=== PATIENT | male | born 1940 | race Caucasian/White ===

== ENCOUNTER 2017-03-22 18:15 | Emergency (ER) | payer MEDICARE, OTHER ==
[~2017-03-22] VITALS: Ht 177.8 cm; Wt 85.3 kg
[2017-03-22] MEDS ORDERED: METF1000 (18:25)
[2017-03-22] MEDS ORDERED: LISI-552 (18:25)
[2017-03-22] MEDS ORDERED: INSU100I29 (18:25)
[2017-03-22] MEDS ORDERED: GLIM4TAB (18:25)
[2017-03-22] MEDS ORDERED: LEVO150T6 (18:25)
[2017-03-22] MEDS ORDERED: CICL15CR11 (18:25)
[2017-03-22] MEDS ORDERED: OMEP20CA12 (18:25)
[2017-03-22] MEDS ORDERED: NS IV 1000 ML 1,000 ML IV ONE ×2 (18:32→19:07)
--- NOTE | 2017-03-22 18:32 | ED General ---
General Chief Complaint: Dizziness/Syncope Stated Complaint: DIZZINESS/NAUSEA/LOW BP Nursing Triage Note: PATIENT REPORTS DIZZINESS, N/V AND HYPOTENSION Nursing Sepsis Screen: No Definite Risk Source of Information: Patient, Spouse Exam Limitations: No Limitations History of Present Illness Time Seen by Provider: 18:26 Initial Comments Patient presents to ER by private conveyance with his with chief complaint that this afternoon he was out doing yard work pruning [employer] and doing okay however he started feeling lightheaded and weak and nauseated. When he arrived to the ER he vomited 1 without blood in it. He says about 2 hours prior to arrival he was feeling well and talking to a friend on the phone but shortly after that he had to go in and sit down. Since he is feeling so poorly and dizzy he got his blood pressure and a blood sugar. The blood sugar was in the 150s and his blood pressure was 108 over 60s which was low for him. He recalls taking all of his medicines this morning. He drinks on average 2 alcoholic beverages daily with his last intake last night. He denies any coronary history or thyroid disorder. He takes a baby aspirin daily. He is also on mely inhibitors. He denies any sweats or numbness or chest pain or shortness of breath. Allergies and Home Medications Allergies Coded Allergies: codeine (Verified Allergy, Unknown, 03/22/17) epinephrine (Verified Allergy, Unknown, 03/22/17) Home Medications Ciclopirox Olamine 15 Gm Cream..g., #90 (Reported) Glimepiride 4 Mg Tablet, #180 (Reported) Insulin Detemir 100 Unit/1 Ml Insuln.pen, #6 (Reported) Levothyroxine Sodium 150 Mcg Tablet, #90 (Reported) Lisinopril 20 Mg Tablet, #90 (Reported) Metformin HCl 1,000 Mg Tablet, #180 (Reported) Omeprazole 20 Mg Capsule.dr, #90 (Reported) Constitutional: see HPI, No chills, No diaphoresis, dizziness, No fever, malaise EENTM: No ear pain, No eye pain, No nose congestion Respiratory: No cough, No short of breath Cardiovascular: No chest pain, No edema, No Hx of Intervention, No syncope, No vascular heart diseas Gastrointestinal: No abdominal pain, No constipation, No diarrhea, nausea, vomiting Genitourinary: No dysuria, No frequency Musculoskeletal: No back pain, No joint pain Skin: No pruritus, No rash Psychiatric/Neurological: Denies Headache Past Bfdibfz-Gxtojg-Ekwagu Hx Patient Social History Alcohol Use: Regular Use Recreational Drug Use: No Smoking Status: Never a Smoker Recent Foreign Travel: No Contact w/Someone Who Travel: No Recent Infectious Disease Expo: No Recent Hopitalizations: No Seasonal Allergies Seasonal Allergies: No Surgeries Surgeries: Adenoidectomy, Gallbladder, Orthopedic, Thyroidectomy, Tonsillectomy Cardiovascular Cardiac Disorders: Hypertension Gastrointestinal Gastrointestinal Disorders: Gastroesophageal Reflux Endocrine Endocrine Disorders: Diabetes, Insulin dep, Hypothyroidsim Physical Exam Vital Signs Vital Sign - Last 12Hours 03/22/17 18:22 Temp 98.2 Pulse 61 Resp 18 B/P (MAP) 188/80 Pulse Ox 99 Capillary Refill : Less Than 3 Seconds General Appearance: WD/WN, Mild Distress Eyes: Bilateral Eye EOMI, Bilateral Eye Normal Inspection, Bilateral Eye PERRL HEENT: PERRL/EOMI, TMs Normal, Normal ENT Inspection, Pharynx Normal, Other ( pharynx mucosa is dry) Neck: Normal Inspection, Non Tender Respiratory: Lungs Clear, Normal Breath Sounds Cardiovascular: Regular Rate, Rhythm, No Edema, No JVD Gastrointestinal: Normal Bowel Sounds, Non Tender, Soft Extremity: Normal Capillary Refill, No Pedal Edema Neurologic/Psychiatric: Alert, Oriented x3 Skin: Normal Color, Warm/Dry Lymphatic: No Adenopathy Progress/Results/Core Measures Results/Orders Lab Results Laboratory Tests Test 03/22/17 18:30 Range/Units White Blood Count 8.1 4.3-11.0 10^3/uL Red Blood Count 4.13 L 4.35-5.85 10^6/uL Hemoglobin 12.3 L 13.3-17.7 G/DL Hematocrit 36 L 40-54 % Mean Corpuscular Volume 86 80-99 FL Mean Corpuscular Hemoglobin 30 25-34 PG Mean Corpuscular Hemoglobin Concent 35 32-36 G/DL Red Cell Distribution Width 12.1 10.0-14.5 % Platelet Count 207 130-400 10^3/uL Mean Platelet Volume 10.4 7.4-10.4 FL Neutrophils (%) (Auto) 48 42-75 % Lymphocytes (%) (Auto) 37 12-44 % Monocytes (%) (Auto) 9 0-12 % Eosinophils (%) (Auto) 5 0-10 % Basophils (%) (Auto) 1 0-10 % Neutrophils # (Auto) 3.9 1.8-7.8 X 10^3 Lymphocytes # (Auto) 3.0 1.0-4.0 X 10^3 Monocytes # (Auto) 0.8 0.0-1.0 X 10^3 Eosinophils # (Auto) 0.4 H 0.0-0.3 10^3/uL Basophils # (Auto) 0.1 0.0-0.1 10^3/uL Sodium Level 135 135-145 MMOL/L Potassium Level 4.7 3.6-5.0 MMOL/L Chloride Level 103 98-107 MMOL/L Carbon Dioxide Level 22 21-32 MMOL/L Anion Gap 10 5-14 MMOL/L Blood Urea Nitrogen 28 H 7-18 MG/DL Creatinine 1.74 H 0.60-1.30 MG/DL Estimat Glomerular Filtration Rate 38 BUN/Creatinine Ratio 16 Glucose Level 142 H 70-105 MG/DL Calcium Level 9.1 8.5-10.1 MG/DL Magnesium Level 1.8 1.8-2.4 MG/DL Total Bilirubin 0.6 0.1-1.0 MG/DL Aspartate Amino Transf (AST/SGOT) 16 5-34 U/L Alanine Aminotransferase (ALT/SGPT) 13 0-55 U/L Alkaline Phosphatase 79 40-136 U/L Troponin I < 0.30 <0.30 NG/ML Total Protein 7.1 6.4-8.2 GM/DL Albumin 4.0 3.2-4.5 GM/DL My Orders Orders - CARLO MENA Cbc With Automated Diff (03/22/17 18:32) Comprehensive Metabolic Panel (03/22/17 18:32) Magnesium (03/22/17 18:32) Troponin I (03/22/17 18:32) Chest 1 View, Ap/Pa Only (03/22/17 18:32) Ekg Tracing (03/22/17 18:32) Monitor-Rhythm Ecg Trace Only (03/22/17 18:32) Saline Lock/Iv-Start (03/22/17 18:32) Ns Iv 1000 Ml (Sodium Chloride 0.9%) (03/22/17 18:32) Ondansetron Injection (Zofran Injectio (03/22/17 18:45) Ns Iv 1000 Ml (Sodium Chloride 0.9%) (03/22/17 19:07) Ondansetron Injection (Zofran Injectio (03/22/17 19:15) Medications Given in ED Current Medications Medications Dose Ordered Sig/Kusum Route Start Time Stop Time Status Last Admin Dose Admin Ondansetron HCl 4 mg ONCE ONCE IVP 03/22/17 18:45 03/22/17 18:46 DC 03/22/17 18:39 4 MG Ondansetron HCl 4 mg ONCE ONCE IVP 03/22/17 19:15 03/22/17 19:16 DC 03/22/17 19:18 4 MG Sodium Chloride 1,000 ml @ 0 mls/hr Q0M ONCE IV 03/22/17 18:32 03/22/17 18:35 DC 03/22/17 18:39 0 MLS/HR Sodium Chloride 1,000 ml @ 0 mls/hr Q0M ONCE IV 03/22/17 19:07 03/22/17 19:09 DC 03/22/17 19:18 0 MLS/HR Vital Signs/I&O Vital Sign - Last 12Hours 03/22/17 18:22 Temp 98.2 Pulse 61 Resp 18 B/P (MAP) 188/80 Pulse Ox 99 Blood Pressure Mean: 116 Progress Note #1: Time: 18:42 Progress Note It appears to be classic heat exhaustion however we will do a little workup given his age just to make sure there is not a cardiac cause or that it has triggered a cardiac event. Progress Note #2: Time: 19:04 Progress Note First set orthostatic vitals were negative for sympathetic dysfunction. ECG Initial ECG Impression Date: Mar 22, 2017 Initial ECG Impression Time: 18:39 Initial ECG Rate: 56 Initial ECG Rhythm: Normal Sinus Initial ECG Intervals: QRS (136 ms) Initial ECG Impression: Normal, Nonspecific Changes Initial ECG Comparisson: No Previous ECG Available Comment No ST T wave aberrations. Diagnostic Imaging Diagonstic Imaging: Xray Plain Films/CT/US/NM/MRI: chest Comments No previous imaging to compare to. Otherwise no acute cardiopulm processes noted. Potential cardiomegaly however this is a difficult study to make that call. [facility] [place], [place] NAME: ROGELIO SALCIDO [facility] REC#: [id number] PT STATUS: REG ER : 1940 PHYSICIAN: CARLO MENA MD ADMIT DATE: 03/22/17/ER Draft Date of Exam:03/22/17 CHEST 1 VIEW, AP/PA ONLY EXAM: CHEST 1 VIEW, AP/PA ONLY INDICATION: Dizziness. Hypotension. COMPARISON: None. FINDINGS: Normal heart size and pulmonary vascularity. No focal pulmonary opacity, pleural effusion or pneumothorax. Left costophrenic angle is not included on the exam. No acute osseous findings. IMPRESSION: No acute cardiopulmonary findings. The left costophrenic angle is not included on the exam. Dictated on workstation # [id number] Dict: 03/22/171901 Trans: 03/22/171907 [id number] Interpreted by: JULIO GARZA MD Electronically signed by: Reviewed: Reviewed by Me Departure Impression Impression: Primary Impression: Dehydration Additional Impressions: Dizziness Heat exhaustion Qualified Codes: T67.5XXA - Heat exhaustion, unspecified, initial encounter Disposition: HOME, SELF-CARE Condition: Improved Departure-Patient Inst. Decision time for Depature: 19:39 Referrals: ROGELIO MAYES MD (PCP) Primary Care Physician Patient Instructions: Heat Exhaustion and Heat Stroke (DC) Add. Discharge Instructions: The next day or two you should probably take it easy and stay out of the heat. Please do your yardwork early in the morning when it still cool. It is reasonable to drink a sports drink especially one without sugar every time you goes out in the heat or is sweating. You can dilute it 50/50 with water and this will help if the flavor is too strong. Otherwise follow-up tomorrow at your preplanned appointment with Dr. Mayes. If you're having any new or worrisome symptoms you should return to the ER. I have sent some Zofran to the pharmacy. Take it every 6 hours if you have nausea or vomiting. All discharge instructions reviewed with patient and/or family. Voiced understanding. Scripts Ondansetron (Zofran Odt) 4 Mg Tab.rapdis 4 MG PO Q6H Y for NAUSEA/VOMITING-1ST LINE, #20 TAB 0 Refills Prov: CARLO MENA 03/22/17 Copy Copies To 1: ROGELIO MAYES MD, TITUS J Mar 22, 2017 18:31
[2017-03-22 18:42] LABS: BASOPHILS # (AUTO) 0.1 10^3/uL (0.0-0.1); BASOPHILS % (AUTO) 1 % (0-10); EOSINOPHILS # (AUTO) 0.4 10^3/uL (0.0-0.3); EOSINOPHILS % (AUTO) 5 % (0-10); LYMPHOCYTES % (AUTO) 37 % (12-44); MEAN CORPUSCULAR HEMOGLOBIN 30 PG (25-34); MEAN CORPUSCULAR HGB CONC 35 G/DL (32-36); MEAN CORPUSCULAR VOLUME 86 FL (80-99); MEAN PLATELET VOLUME 10.4 FL (7.4-10.4); MONOCYTES # (AUTO) 0.8 X 10^3 (0.0-1.0); MONOCYTES % (AUTO) 9 % (0-12); NEUTROPHILS # (AUTO) 3.9 X 10^3 (1.8-7.8); NEUTROPHILS % (AUTO) 48 % (42-75); PLATELET COUNT 207 10^3/uL (130-400); RED BLOOD COUNT 4.13 10^6/uL (4.35-5.85); RED CELL DISTRIBUTION WIDTH 12.1 % (10.0-14.5); WHITE BLOOD COUNT 8.1 10^3/uL (4.3-11.0)
[2017-03-22] MEDS ORDERED: ONDANSETRON 4 MG/2 ML (SDV) Z0FRAN IVP ONE ×2 (18:45→19:15)
[2017-03-22 18:57] LABS: ALANINE AMINOTRANSFERASE 13 U/L (0-55); ANION GAP 10 MMOL/L (5-14); ASPARTATE AMINO TRANSFERASE 16 U/L (5-34); BILIRUBIN,TOTAL 0.6 MG/DL (0.1-1.0); BLOOD UREA NITROGEN 28 MG/DL (7-18); BUN/CREATININE RATIO 16; CALCIUM 9.1 MG/DL (8.5-10.1); CARBON DIOXIDE 22 MMOL/L (21-32); CHLORIDE 103 MMOL/L (98-107); CREATININE SERUM 1.74 MG/DL (0.60-1.30); GFR ESTIMATED 38; GLUCOSE 142 MG/DL (70-105); MAGNESIUM 1.8 MG/DL (1.8-2.4); POTASSIUM 4.7 MMOL/L (3.6-5.0); SODIUM 135 MMOL/L (135-145); TOTAL PROTEIN 7.1 GM/DL (6.4-8.2)
[2017-03-22 19:03] LABS: TROPONIN I < 0.30 NG/ML (<0.30)
--- NOTE | 2017-03-22 19:09 | Diagnostic Imaging Report ---
EXAM: CHEST 1 VIEW, AP/PA ONLY INDICATION: Dizziness. Hypotension. COMPARISON: None. FINDINGS: Normal heart size and pulmonary vascularity. No focal pulmonary opacity, pleural effusion or pneumothorax. Left costophrenic angle is not included on the exam. No acute osseous findings. IMPRESSION: No acute cardiopulmonary findings. The left costophrenic angle is not included on the exam. Dictated by: Dictated on workstation # [id number]
[2017-03-22] MEDS ORDERED: ONDA4TAB8 PO (19:49)
[2017-03-22 19:57] VITALS: BP 141/72
== END 2017-03-22 19:57 | disposition home or self-care (01) ==
LOC: EDUNIT# 18:15 → ER 18:16
DX: T67.5XXA Heat exhaustion, unspecified, initial encounter (principal); I10 Essential (primary) hypertension; K21.9 Gastro-esophageal reflux disease without esophagitis; E11.9 Type 2 diabetes mellitus without complications; E03.9 Hypothyroidism, unspecified; Z79.4 Long term (current) use of insulin; Z79.84 Long term (current) use of oral hypoglycemic drugs; Z90.89 Acquired absence of other organs; Z90.49 Acquired absence of other specified parts of digestive tract; X30.XXXA Exposure to excessive natural heat, initial encounter
CPT/HCPCS: 36415; 71010; 80053; 83735; 84484; 85025; 93005; 96361; 96374; 96376

== ENCOUNTER 2018-10-09 15:14 | Inpatient (IN) | payer MEDICARE, OTHER ==
[~2018-10-09] VITALS: Ht 175.3 cm; Wt 86.0 kg
[~2018-10-09 15:14] MED LIST: CICL15CR11; GLIM4TAB PO; INSU100I29 SC; LEVO150T6 PO; LISI-552 PO; METF-399 PO; OMEP20CA12 PO; ONDA4TAB8 PO
[2018-10-09 15:57] LABS: BASOPHILS % (AUTO) 0 % (0-10); EOSINOPHILS % (AUTO) 0 % (0-10); HEMATOCRIT 37 % (40-54); HEMOGLOBIN 12.7 G/DL (13.3-17.7); LYMPHOCYTES % (AUTO) 7 % (12-44); MEAN CORPUSCULAR HEMOGLOBIN 30 PG (25-34); MEAN CORPUSCULAR HGB CONC 35 G/DL (32-36); MEAN CORPUSCULAR VOLUME 86 FL (80-99); MEAN PLATELET VOLUME 10.7 FL (7.4-10.4); MONOCYTES # (AUTO) 1.2 X 10^3 (0.0-1.0); MONOCYTES % (AUTO) 8 % (0-12); NEUTROPHILS # (AUTO) 12.8 X 10^3 (1.8-7.8); NEUTROPHILS % (AUTO) 85 % (42-75); PLATELET COUNT 190 10^3/uL (130-400); RED CELL DISTRIBUTION WIDTH 12.5 % (10.0-14.5)
[2018-10-09] MEDS ORDERED: ACETAMINOPHEN 500 MG TAB (TYLENOL) PO PRN (16:00)
[2018-10-09 16:15] LABS: ALBUMIN 4.1 GM/DL (3.2-4.5); BILIRUBIN,TOTAL 1.2 MG/DL (0.1-1.0); CALCIUM 9.4 MG/DL (8.5-10.1); CREATININE SERUM 1.84 MG/DL (0.60-1.30); POTASSIUM 4.9 MMOL/L (3.6-5.0); TOTAL PROTEIN 7.1 GM/DL (6.4-8.2)
[2018-10-09 16:18] LABS: INR 1.1 (0.8-1.4); PROTHROMBIN TIME PATIENT 13.9 SEC (12.2-14.7)
--- NOTE | 2018-10-09 16:22 | Diagnostic Imaging Report ---
INDICATION: Fever and tachycardia. EXAM: Frontal chest obtained at 3:56 hours p.m. COMPARISON: 03/22/2017. FINDINGS: Heart and mediastinal silhouette are normal in appearance. The lungs appear clear. There is no pneumothorax or pleural fluid. IMPRESSION: No acute process in the chest. Dictated by: Dictated on workstation # [id number]
--- NOTE | 2018-10-09 16:27 | ED General ---
General Chief Complaint: Fever-Adult/Adol Stated Complaint: FEVER/TACHYCARDIC Source of Information: Patient Exam Limitations: No Limitations History of Present Illness Date Seen by Provider: Oct 09, 2018 Time Seen by Provider: 16:08 Initial Comments Here with report of not feeling well since yesterday. Reports fever, cough, chills and overall not feeling well. Seen by his primary care provider today who had concerns about influenza. Patient arrives tachycardic. Normally very healthy. Sent here for further evaluation related to concerns of pneumonia or influenza. Timing/Duration: 1-2 Days Severity: Moderate Associated Systoms: Cough, Fever/Chills; No Nausea/Vomiting; Shortness of Air, Weakness Allergies and Home Medications Allergies Coded Allergies: codeine (Verified Allergy, Unknown, 03/22/17) epinephrine (Verified Allergy, Unknown, 03/22/17) Home Medications Ondansetron 4 Mg Tab.rapdis, 4 MG PO Q6H PRN for NAUSEA/VOMITING-1ST LINE Prescribed by: CARLO MENA on 03/22/171948 Patient Home Medication List Home Medication List Reviewed: Yes Review of Systems Review of Systems Constitutional: see HPI, chills, fever, malaise, weakness EENTM: nose congestion; No throat pain Respiratory: cough, short of breath Cardiovascular: see HPI; No chest pain Gastrointestinal: No abdominal pain; loss of appetite; No nausea, No vomiting Genitourinary: no symptoms reported Musculoskeletal: no symptoms reported Skin: no symptoms reported Psychiatric/Neurological: No Symptoms Reported All Other Systems Reviewed Negative Unless Noted: Yes Past Dqhgiij-Ofmclu-Tcimny Hx Past Med/Social Hx: Reviewed Nursing Past Med/Soc Hx Patient Social History Alcohol Beverage of Choice: Wine Recent Foreign Travel: No Contact w/Someone Who Travel: No Recent Hopitalizations: No Seasonal Allergies Seasonal Allergies: No Past Medical History Surgeries: Yes Adenoidectomy, Gallbladder, Orthopedic, Thyroidectomy, Tonsillectomy Respiratory: No Cardiac: Yes Hypertension Neurological: No Genitourinary: No Gastrointestinal: Yes Gastroesophageal Reflux Musculoskeletal: No Endocrine: Yes Diabetes, Insulin dep, Hypothyroidsim HEENT: No Cancer: No Psychosocial: No Integumentary: Yes Blood Disorders: No Family Medical History Reviewed Nursing Family Hx Physical Exam-Suspected Sepsis Physical Exam Vital Signs Vital Signs - First Documented 10/09/18 15:15 Temp 102.2 Pulse 113 Resp 28 B/P (MAP) 186/85 (118) O2 Delivery Room Air Capillary Refill : Height, Weight, BMI Height: 5'10.00" Weight: 188lbs. oz. 85.888581fp; BMI Method:Stated General Appearance: WD/WN, Mild Distress HEENT: PERRL/EOMI, Pharyngeal Erythema Neck: Non Tender, Supple Respiratory: No Accessory Muscle Use, Crackles (right basilar) Cardiovascular: No Murmur, Tachycardia Gastrointestinal: Non Tender, Soft Back: Normal Inspection, No CVA Tenderness, No Vertebral Tenderness Extremity: Normal Range of Motion, Non Tender Neurologic/Psychiatric: Alert, Oriented x3 Skin: normal color, warm/dry Focused Exam Lactate Level 10/09/18 15:45: Lactic Acid Level 1.58 Lactic Acid Level Laboratory Tests Test 10/09/18 15:45 Lactic Acid Level 1.58 MMOL/L (0.50-2.00) Progress/Results/Core Measures Suspected Sepsis SIRS Temperature: Pulse: Respiratory Rate: Laboratory Tests 10/09/18 15:45: White Blood Count 15.0H Blood Pressure / Mean: 10/09/18 15:45: Lactic Acid Level 1.58 Laboratory Tests 10/09/18 15:45: Creatinine 1.84H, INR Comment 1.1, Platelet Count 190, Total Bilirubin 1.2H Results/Orders Lab Results Laboratory Tests Test 10/09/18 15:45 10/09/18 16:20 Range/Units White Blood Count 15.0 H 4.3-11.0 10^3/uL Red Blood Count 4.27 L 4.35-5.85 10^6/uL Hemoglobin 12.7 L 13.3-17.7 G/DL Hematocrit 37 L 40-54 % Mean Corpuscular Volume 86 80-99 FL Mean Corpuscular Hemoglobin 30 25-34 PG Mean Corpuscular Hemoglobin Concent 35 32-36 G/DL Red Cell Distribution Width 12.5 10.0-14.5 % Platelet Count 190 130-400 10^3/uL Mean Platelet Volume 10.7 H 7.4-10.4 FL Neutrophils (%) (Auto) 85 H 42-75 % Lymphocytes (%) (Auto) 7 L 12-44 % Monocytes (%) (Auto) 8 0-12 % Eosinophils (%) (Auto) 0 0-10 % Basophils (%) (Auto) 0 0-10 % Neutrophils # (Auto) 12.8 H 1.8-7.8 X 10^3 Lymphocytes # (Auto) 1.0 1.0-4.0 X 10^3 Monocytes # (Auto) 1.2 H 0.0-1.0 X 10^3 Eosinophils # (Auto) 0.0 0.0-0.3 10^3/uL Basophils # (Auto) 0.0 0.0-0.1 10^3/uL Neutrophils % (Manual) 88 % Lymphocytes % (Manual) 5 % Monocytes % (Manual) 7 % Blood Morphology Comment NORMAL Prothrombin Time 13.9 12.2-14.7 SEC INR Comment 1.1 0.8-1.4 Activated Partial Thromboplast Time 29 24-35 SEC Sodium Level 134 L 135-145 MMOL/L Potassium Level 4.9 3.6-5.0 MMOL/L Chloride Level 100 98-107 MMOL/L Carbon Dioxide Level 21 21-32 MMOL/L Anion Gap 13 5-14 MMOL/L Blood Urea Nitrogen 31 H 7-18 MG/DL Creatinine 1.84 H 0.60-1.30 MG/DL Estimat Glomerular Filtration Rate 36 BUN/Creatinine Ratio 17 Glucose Level 428 *H 70-105 MG/DL Lactic Acid Level 1.58 0.50-2.00 MMOL/L Calcium Level 9.4 8.5-10.1 MG/DL Corrected Calcium 9.3 8.5-10.1 MG/DL Total Bilirubin 1.2 H 0.1-1.0 MG/DL Aspartate Amino Transf (AST/SGOT) 13 5-34 U/L Alanine Aminotransferase (ALT/SGPT) 11 0-55 U/L Alkaline Phosphatase 98 40-136 U/L Total Protein 7.1 6.4-8.2 GM/DL Albumin 4.1 3.2-4.5 GM/DL Urine Color YELLOW Urine Clarity CLEAR Urine pH 5 5-9 Urine Specific Clarinda 1.015 L 1.016-1.022 Urine Protein 1+ H NEGATIVE Urine Glucose (UA) 4+ H NEGATIVE Urine Ketones 3+ H NEGATIVE Urine Nitrite NEGATIVE NEGATIVE Urine Bilirubin NEGATIVE NEGATIVE Urine Urobilinogen NORMAL NORMAL MG/DL Urine Leukocyte Esterase NEGATIVE NEGATIVE Urine RBC (Auto) 1+ H NEGATIVE Urine RBC NONE /HPF Urine WBC NONE /HPF Urine Squamous Epithelial Cells RARE /HPF Urine Crystals NONE /LPF Urine Bacteria NEGATIVE /HPF Urine Casts NONE /LPF Urine Mucus NEGATIVE /LPF Urine Culture Indicated NO Micro Results Microbiology 10/09/18 Influenza Types A,B Antigen (JOSE M) - Final, Complete My Orders Orders - SOFI CORADO MD Cbc With Automated Diff (10/09/18 15:48) Comprehensive Metabolic Panel (10/09/18 15:48) Blood Culture (10/09/18 15:48) Sputum Culture (10/09/18 15:48) Urinalysis (10/09/18 15:48) Urine Culture (10/09/18 15:48) Protime With Inr (10/09/18 15:48) Partial Thromboplastin Time (10/09/18 15:48) Chest 1 View, Ap/Pa Only (10/09/18 15:48) Acetaminophen Tablet (Tylenol Tablet) (10/09/18 16:00) Saline Lock/Iv-Start (10/09/18 15:48) Saline Lock/Iv-Start (10/09/18 15:48) Vital Signs Adult Sepsis Patie Q15M (10/09/18 15:48) O2 (10/09/18 15:48) Remove Rings In Anticipation O (10/09/18 15:48) Lactic Acid Analyzer (10/09/18 15:48) Influenza A And B Antigens (10/09/18 15:48) Manual Differential (10/09/18 15:45) Saline Lock/Iv-Start (10/09/18 16:29) Ns Iv 1000 Ml (Sodium Chloride 0.9%) (10/09/18 16:29) Ekg Tracing (10/09/18 16:49) Ceftriaxone For Iv Use (Rocephin For I (10/09/18 17:45) Medications Given in ED Current Medications Medications Dose Ordered Sig/Kusum Route Start Time Stop Time Status Last Admin Dose Admin Acetaminophen 1,000 mg ONCE PRN PO 10/09/18 16:00 10/09/18 16:02 DC 10/09/18 16:01 1,000 MG Sodium Chloride 1,000 ml @ 0 mls/hr Q0M ONCE IV 10/09/18 16:29 10/09/18 16:30 DC 10/09/18 16:45 1,000 MLS/HR Vital Signs/I&O 2/4/19 15:15 Temp 102.2 Pulse 113 Resp 28 B/P (MAP) 186/85 (118) O2 Delivery Room Air Capillary Refill : Progress Note : Progress Note Seen and evaluated. IV, labs, chest x-ray, EKG, blood cultures and lactic acid ordered. Normal saline 1 L bolus. Tylenol 1 g by mouth ordered. Monitor patient. 1716: I did discuss the case with Dr. LINARES. Patient has persistent tachycardia. Flu negative. Chest x-ray reported as clear but I am concerned about right lower lobe pneumonia. Patient felt a little better but still overall not well. Patient to be admitted, inpatient status. Patient and family agree with plan. Influenza screen negative. We will go ahead and treat for possible pneumonia. Rocephin 1 g IV ordered. ECG Initial ECG Impression Date: Oct 09, 2018 Initial ECG Impression Time: 16:32 Initial ECG Rate: 110 Initial ECG Rhythm: S.Tach Comment Sinus tachycardia with normal axis. No evidence of ST elevation [place]. Nonspecific intraventricular conduction delay. Similar to previous of 03/22/17 although rate is quite increased. Interpreted by me. Diagnostic Imaging Diagonstic Imaging: Xray Plain Films/CT/US/NM/MRI: chest Comments NAME: ROGELIO SALCIDO [facility] REC#: [id number] PT STATUS: REG ER : 1940 PHYSICIAN: SOFI CORADO MD ADMIT DATE: 10/09/18/ER Signed Date of Exam: 10/09/18 CHEST 1 VIEW, AP/PA ONLY INDICATION: Fever and tachycardia. EXAM: Frontal chest obtained at 3:56 hours p.m. COMPARISON: 03/22/2017. FINDINGS: Heart and mediastinal silhouette are normal in appearance. The lungs appear clear. There is no pneumothorax or pleural fluid. IMPRESSION: No acute process in the chest. Dictated by: Dictated on workstation # [id number] Dict: 10/09/18 1606 Trans: 10/09/18 170 Interpreted by: DI FERNANDEZ MD Electronically signed by: DI FERNANDEZ MD 10/09/18 1700 Departure Communication (Admissions) Time/Spoke to Admitting Phy: 17:16 Impression Primary Impression: Fever Qualified Codes: R50.9 - Fever, unspecified Additional Impressions: Tachycardia Hyperglycemia Right lower lobe pneumonia Qualified Codes: J18.1 - Lobar pneumonia, unspecified organism Disposition: ADMITTED INPATIENT Condition: Stable Admissions Decision to Admit Reason: Admit from ER (General) Decision to Admit/Date: Oct 09, 2018 Time/Decision to Admit Time: 17:16 Departure-Patient Inst. Referrals: ROGELIO MAYES MD (PCP/Family) Primary Care Physician SOFI CORADO MD Oct 09, 2018 16:27
[2018-10-09] MEDS ORDERED: NS IV 1000 ML 1,000 ML IV ONE (16:29)
[2018-10-09 16:33] LABS: LYMPHOCYTES % (MANUAL) 5 %; MONOCYTES % (MANUAL) 7 %; NEUTROPHILS % (MANUAL) 88 %; RBC MORPH NORMAL
[2018-10-09 16:37] LABS: BILIRUBIN,URINE NEGATIVE (NEGATIVE); CLARITY,URINE CLEAR; COLOR,URINE YELLOW; GLUCOSE, URINE (UA) 4+ (NEGATIVE); KETONES,URINE 3+ (NEGATIVE); LEUKOCYTE ESTERASE ,URINE NEGATIVE (NEGATIVE); NITRITE,URINE NEGATIVE (NEGATIVE); PH,URINE 5 (5-9); PROTEIN,URINE 1+ (NEGATIVE); UROBILINOGEN,URINE NORMAL (NORMAL)
[2018-10-09 16:44] LABS: BACTERIA,URINE NEGATIVE /HPF; SQUAMOUS EPITHELIAL CELL,UR RARE /HPF
[2018-10-09] MEDS ORDERED: cefTRIAXone FOR IV USE 1,000 MG in WATER (STERILE) FOR INJECTION 50 ML IV ONE (17:45)
[2018-10-09] MEDS ORDERED: cefTRIAXone 1,000 MG/2.86 ml vial (IM ONLY) ONE (17:55)
--- NOTE | 2018-10-09 18:08 | NUR ---
TEMP 99.2
--- NOTE | 2018-10-09 19:10 | NUR ---
Rogelio Salcido admitted to room 412-1, with an admitting diagnosis of RLL pna , on 10/09/18 from ED via wheelchair, accompanied by staff et .ROGELIO SALCIDO introduced to surroundings, call light, bed controls, phone, TV, temperature control, lights, meal times, smoking policy, visitor policy, side rail policy, bathrooms and showers. Patient Rights given to patient in the handbook.ROGELIO SALCIDO verbalizes understanding that [facility] is not responsible for the loss or damage to any personal effects or valuables that are kept in the patients possession during their hospitalization. The Patient Care Plans were discussed with the pt et . ROGELIO SALCIDO verbalizes understanding of Interdisciplinary Patient Education. Patient and/or family were informed about the Rapid Response Team and its purpose.
[2018-10-09 20:00] VITALS: BP 130/60
[2018-10-09] MEDS ORDERED: ACETAMINOPHEN 325 MG TABLET PO PRN (20:00)
[2018-10-09] MEDS ORDERED: CATHETER FLUSH 10 ML SYR IV PRN (20:00)
[2018-10-09] MEDS ORDERED: ONDANSETRON 4 MG/2 ML (SDV) Z0FRAN IV PRN (20:00)
[2018-10-09] MEDS ORDERED: AZITHROMYCIN 500 MG/NS 250 ML IVPB IV NR ×2 (20:00)
[2018-10-09 20:39] VITALS: BP 120/88
[2018-10-09] MEDS: AZITHROMYCIN 250 MG TAB (ZITHROMAX) PO SCH (20:41)
[2018-10-09] MEDS: NS IV 1000 ML 1,000 ML IV SCH (20:41)
[2018-10-09] MEDS ORDERED: RT-ALBUTEROL/IPRATROPIUM 3 ML (DUONEB) VIAL INH PRN (20:45)
[2018-10-09] MEDS ORDERED: RT-ALBUTEROL/IPRATROPIUM 3 ML (DUONEB) VIAL ONE (20:46)
[2018-10-09] MEDS ORDERED: RT-ALBUTEROL/IPRATROPIUM 3 ML (DUONEB) VIAL INH SCH (22:00)
[2018-10-10] VITALS (7 sets, daily range): BP systolic 110–160; BP diastolic 60–78
[2018-10-10 06:18] LABS: BASOPHILS % (AUTO) 0 % (0-10); EOSINOPHILS % (AUTO) 0 % (0-10); HEMATOCRIT 32 % (40-54); HEMOGLOBIN 11.3 G/DL (13.3-17.7); LYMPHOCYTES # (AUTO) 1.4 X 10^3 (1.0-4.0); LYMPHOCYTES % (AUTO) 12 % (12-44); MEAN CORPUSCULAR HEMOGLOBIN 30 PG (25-34); MEAN CORPUSCULAR HGB CONC 35 G/DL (32-36); MEAN CORPUSCULAR VOLUME 86 FL (80-99); MEAN PLATELET VOLUME 10.7 FL (7.4-10.4); MONOCYTES # (AUTO) 1.1 X 10^3 (0.0-1.0); MONOCYTES % (AUTO) 9 % (0-12); NEUTROPHILS # (AUTO) 9.2 X 10^3 (1.8-7.8); NEUTROPHILS % (AUTO) 79 % (42-75); PLATELET COUNT 190 10^3/uL (130-400); RED CELL DISTRIBUTION WIDTH 12.6 % (10.0-14.5); WHITE BLOOD COUNT 11.8 10^3/uL (4.3-11.0)
[2018-10-10 06:34] LABS: CALCIUM 8.5 MG/DL (8.5-10.1); CREATININE SERUM 1.51 MG/DL (0.60-1.30); POTASSIUM 4.3 MMOL/L (3.6-5.0)
[2018-10-10] MEDS: inSUlin ASPART (NovoLOG) 1 UNIT/0.01 ML (CHARGE PER UNIT) SC SCH ×4 (06:39→21:10)
[2018-10-10] MEDS: NS IV 1000 ML 1,000 ML IV SCH ×3 (06:39→19:30)
[2018-10-10] MEDS ORDERED: cefTRIAXone 1 GM/NS 50 ML IVPB IV SCH ×2 (09:00)
[2018-10-10] MEDS ORDERED: SAW160CA3 PO (12:00)
[2018-10-10] MEDS ORDERED: ASPI-983 PO (12:00)
[2018-10-10] MEDS ORDERED: FOLI0.8T PO (12:00)
--- NOTE | 2018-10-10 12:01 | NUR ---
WENT OVER THE EXT MED HX WITH THE PATIENT AND HE VERIFIED HOW HE TAKES EACH. HE ALSO TAKES THE FOLLOWING OTC: ASPIRIN 81MG HS FOLIC ACID Tue SAW LOLY Tue
--- NOTE | 2018-10-10 12:52 | History & Physical-Hospitalist ---
History of Present Illness HPI/Chief Complaint The patient is an 78-year-old white male. He presented to the emergency room last night with complaints of fever, malaise, harsh cough. He was found to have a temperature of 104. His white blood count was 15,000. He has diabetic and his blood sugar at presentation was 428. Lactic acid was normal at 1.58 his pulse was 113. Blood pressure was initially elevated and is now normal. His SaO2 has been and remains 93+ on room air. Chest x-ray suggested the possibility of an infiltrate in the right paracardial area. In reviewing a previous chest x-ray this area of opacity was present and perhaps more dense on the previous film than this. He reports that this symptom complex had began on Tuesday of last week and had progressed throughout the week. Date Seen 10/10/18 Time Seen by a Provider: 12:47 Attending Physician Sam Linares MD PCP Fidel Otero MD Referring Physician Date of Admission Oct 09, 2018 at 17:55 Home Medications & Allergies Home Medications Reviewed patient Home Medication Reconciliation performed by pharmacy medication reconciliations central supply technician supervisor and/or nursing. Patients Allergies have been reviewed. Allergies Allergies Coded Allergies codeine (Verified Allergy, Unknown, 03/22/17) epinephrine (Verified Allergy, Unknown, 03/22/17) Past Ikjusnx-Kuonsx-Xdalrs Hx Past Med/Social Hx: Reviewed Nursing Past Med/Soc Hx Patient Social History Alcohol Use: Regular Use Number of Drinks Today: Alcohol Beverage of Choice: Wine Recreational Drug Use: No Physical Abuse Screen: No Sexual Abuse: No Recent Foreign Travel: No Contact w/other who traveled: No Recent Hopitalizations: No Recent Infectious Disease Expo: No Immunizations Up To Date Date of Pneumonia Vaccine: Jun 05, 2018 Date of Influenza Vaccine: Jun 05, 2018 Seasonal Allergies Seasonal Allergies: No Past Medical History Surgeries: Adenoidectomy, Gallbladder, Orthopedic, Thyroidectomy, Tonsillectomy Cardiac: Hypertension Sexually Transmitted Disease: No HIV/AIDS: No Gastrointestinal: Gastroesophageal Reflux Endocrine: Diabetes, Insulin dep, Hypothyroidsim History of Blood Disorders: No Family History Reviewed Nursing Family Hx Patient reports no known family medical history. Review of Systems Constitutional: see HPI EENTM: no symptoms reported Respiratory: see HPI, cough, phlegm, short of breath Gastrointestinal: no symptoms reported Genitourinary: no symptoms reported Musculoskeletal: muscle stiffness Skin: no symptoms reported Psychiatric/Neurological: No Symptoms Reported Physical Exam Physical Exam Vital Signs Vital Signs - First Documented 10/09/18 10/09/18 15:15 19:15 Temp 102.2 Pulse 113 Resp 28 B/P (MAP) 186/85 (118) Pulse Ox 99 O2 Delivery Room Air Capillary Refill : Less Than 3 Seconds Height, Weight, BMI Height: 5'9.00" Weight: 189lbs. 8.0oz. 85.307420ys; 28.0 BMI Method:Stated General Appearance: WD/WN, Mild Distress HEENT: PERRL/EOMI, Pharyngeal Erythema Neck: Non Tender, Supple Respiratory: No Accessory Muscle Use, Crackles (right basilar) Cardiovascular: No Murmur, Tachycardia Gastrointestinal: Non Tender, Soft Back: Normal Inspection, No CVA Tenderness, No Vertebral Tenderness Extremity: Normal Range of Motion, Non Tender Neurologic/Psychiatric: Alert, Oriented x3 Results Results/Procedures Labs Laboratory Tests 10/09/18 15:45 10/10/18 05:45 Patient resulted labs reviewed. Clinical Quality Measures DVT/VTE Risk/Contraindication: Risk Factor Score Per Nursin RFS Level Per Nursing on Admit: 3=High SAM LINARES MD Oct 10, 2018 12:52
--- NOTE | 2018-10-10 15:16 | NUR ---
Pastoral care visit, offered support, expressed department availability and services.
[2018-10-10] MEDS: GLIMEPIRIDE 4 MG (AMARYL) TAB PO SCH (16:26)
--- NOTE | 2018-10-10 16:30 | NUR ---
PER PT REQUEST RT WAS CALLED ABOUT RT TXS --
[2018-10-10] MEDS: metFORMIN 500 MG (GLUCOPHAGE) TAB PO SCH (17:14)
[2018-10-10] MEDS: RT-ALBUTEROL/IPRATROPIUM 3 ML (DUONEB) VIAL INH SCH (20:01)
[2018-10-10] MEDS ORDERED: inSUlin DETERMIR 1 UNIT/0.01 ML (LEVEMIR) CHARGE PER UNIT SQ SCH (21:00)
[2018-10-10] MEDS: AZITHROMYCIN 250 MG TAB (ZITHROMAX) PO SCH (21:10)
[2018-10-10] MEDS: ASPIRIN E.C. 81 MG (ECOTRIN) TAB PO SCH (21:10)
[2018-10-11 04:00] VITALS: BP 124/80
[2018-10-11] MEDS: NS IV 1000 ML 1,000 ML IV SCH (05:40)
[2018-10-11] MEDS: inSUlin ASPART (NovoLOG) 1 UNIT/0.01 ML (CHARGE PER UNIT) SC SCH ×5 (05:40→20:29)
[2018-10-11] MEDS: metFORMIN 500 MG (GLUCOPHAGE) TAB PO SCH ×2 (06:27→17:00)
[2018-10-11] MEDS: LEVOTHYROXINE 150 MCG (LEVOTHROID) TAB PO SCH (06:27)
[2018-10-11] MEDS: GLIMEPIRIDE 4 MG (AMARYL) TAB PO SCH ×2 (06:27→17:00)
[2018-10-11] MEDS: RT-ALBUTEROL/IPRATROPIUM 3 ML (DUONEB) VIAL INH SCH ×3 (08:15→19:17)
[2018-10-11 08:40] VITALS: BP 163/76
[2018-10-11] MEDS: lisINopril 20 MG (PRINIVIL) TABLET PO SCH (08:47)
[2018-10-11] MEDS: cefTRIAXone FOR IV USE 1,000 MG in WATER (STERILE) FOR INJECTION 10 ML IV SCH (08:48)
[2018-10-11] MEDS ORDERED: PANTOPRAZOLE 20 MG TABLET (PROTONIX) PO SCH (09:00)
--- NOTE | 2018-10-11 11:39 | Progress Note-Hospitalist ---
TIMMY KELLY DO 10/11/18 1139: Subjective HPI/CC On Admission Time Seen by Provider: 10:10 The patient is an 78-year-old white male. He presented to the emergency room last night with complaints of fever, malaise, harsh cough. He was found to have a temperature of 104. His white blood count was 15,000. He has diabetic and his blood sugar at presentation was 428. Lactic acid was normal at 1.58 his pulse was 113. Blood pressure was initially elevated and is now normal. His SaO2 has been and remains 93+ on room air. Chest x-ray suggested the possibility of an infiltrate in the right paracardial area. In reviewing a previous chest x-ray this area of opacity was present and perhaps more dense on the previous film than this. He reports that this symptom complex had began on Tuesday of last week and had progressed throughout the week. Subjective/Events-last exam Pt having significant cough that continues, chest X-ray did not show any significant pneumonia but fever on initial presentation and a cough since August so will initiate a very low dose of Solumedrol in case this is some sort of Bronchospasm will initiate increased dose of Insulin for Hyperglycemia from steroids Pt sees Dr. Mcdaniel and likely needs an EGD with dilation as he has in the past will maintain Rocephin, Zithromax, treat this for bacterial bronchitis with exacerbation of bronchospasm and will evaluate further tomorrow and ambulate with physical therapy Review of Systems General: Fatigue Pulmonary: Cough Focused Exam Lactate Level 10/09/18 15:45: Lactic Acid Level 1.58 Objective Exam Vital Signs Vital Signs Date Time Temp Pulse Resp B/P (MAP) Pulse Ox O2 Delivery O2 Flow Rate FiO2 10/11/18 19:20 98 Room Air 10/11/18 15:42 97.0 90 18 150/81 (104) Capillary Refill : Less Than 3 Seconds General Appearance: No Apparent Distress, WD/WN, Chronically ill, Mild Distress HEENT: PERRL/EOMI, Pharyngeal Erythema Neck: Non Tender, Supple Respiratory: No Accessory Muscle Use, Crackles, Decreased Breath Sounds, Expiration Cardiovascular: Regular Rate, Rhythm, No Edema, No Murmur, Tachycardia Gastrointestinal: Non Tender, Soft Back: Normal Inspection, No CVA Tenderness, No Vertebral Tenderness Extremity: Normal Range of Motion, Non Tender Neurologic/Psychiatric: Alert, Oriented x3 Results/Procedures Lab Laboratory Tests 10/11/18 12:00 Patient resulted labs reviewed. Assessment/Plan Assessment and Plan Assess & Plan/Chief Complaint Assessment: Fever Acute bacterial bronchitis Acute bronchospasm placed on steroids and inhaled corticosteroids Acute on chronic renal insufficiency Esophageal stricture previous dilatation required Hypothyroidism Hypertension Diabetes mellitus insulin-dependent Plan: Add low-dose IV Solu-Medrol Increase insulin for hyperglycemia from steroids Tussionex Advair Ambulate Diagnosis/Problems Diagnosis/Problems (1) Acute bronchitis, bacterial Status: Acute (2) Diabetes Status: Chronic Qualifiers: Diabetes mellitus type: type 2 Diabetes mellitus assisted insulin use: with assisted use Diabetes mellitus complication status: with kidney complications Diabetes mellitus complication detail: with chronic kidney disease Chronic kidney disease stage: stage 2 (mild) Qualified Codes: E11.22 - Type 2 diabetes mellitus with diabetic chronic kidney disease; N18.2 - Chronic kidney disease, stage 2 (mild); Z79.4 - termite control technician (current) use of insulin (3) HTN (hypertension) Status: Chronic Qualifiers: Hypertension type: essential hypertension Qualified Codes: I10 - Essential (primary) hypertension (4) Acute kidney injury Status: Acute (5) History of thyroidectomy, subtotal Status: Chronic (6) Hypothyroidism (acquired) Status: Chronic (7) GERD with stricture Status: Chronic (8) Fever Status: Acute Qualifiers: Fever type: unspecified Qualified Codes: R50.9 - Fever, unspecified (9) Cough Status: Acute Clinical Quality Measures DVT/VTE Risk/Contraindication: Risk Factor Score Per Nursin RFS Level Per Nursing on Admit: 3=High STEVIE PINK MEDICAL STUDENT 10/11/18 1632: Subjective HPI/CC On Admission Date Seen by Provider: Oct 11, 2018 Time Seen by Provider: 11:15 CC: Cough, fever HPI: This is an 78 yo white male who presented to the ER complaining of productive cough, fever, and shakiness. The pt first experienced a cough around [place], at which time he went to the Urgent Care in [place]. Dr. Robertson said his CXR looked like a possible PNA and gave him a 7 day course of antibiotics (pt uncertain what was prescribed) and a single steroid injection. The pt states that he improved significantly, although the cough never completely cleared. About 7 days ago he began worsening again. He went to see a SPECIAL LOAN OFFICER on Tuesday of this week, was found to have a fever of 104F, and was told he she should go to the ER. His initial white count was 15,000, blood sugar 428, and lactic acid 1.58. He was tachycardic and hypertensive. The pt was admitted for concern of sepsis in setting of diabetes.His CXR was concerning for potential R sided infiltrate near cardiac silhouette. Subjective/Events-last exam Pt reports he feels much better since arriving to ER Still has some cough, but denies pain or f/c Says he has not gotten up to move around much yet; it was recommended he do so Review of Systems General: No Chills HEENT: No Head Aches, No Sinus Congestion Pulmonary: No Dyspnea; Cough; No Pleuritic Chest Pain Cardiovascular: No: Palpitations, Edema Gastrointestinal: No: Vomiting, Abdominal Pain, Diarrhea Neurological: No: Weakness, Numbness Objective Exam General Appearance: No Apparent Distress, WD/WN HEENT: PERRL/EOMI, Normal ENT Inspection, Pharynx Normal Neck: Non Tender, Supple Respiratory: Chest Non Tender, No Accessory Muscle Use, No Respiratory Distress , Crackles, Expiration Cardiovascular: Regular Rate, Rhythm, No Edema, No Murmur, Normal Peripheral Pulses Gastrointestinal: Normal Bowel Sounds, Non Tender, Soft Back: No CVA Tenderness Extremity: Normal Range of Motion, Non Tender, No Pedal Edema Neurologic/Psychiatric: Alert, Oriented x3, No Motor/Sensory Deficits, Normal Mood/Affect Skin: Normal Color, Warm/Dry Lymphatic: No Adenopathy Results/Procedures Imaging: Reviewed Imaging Films, Reviewed Imaging Report Assessment/Plan Assessment and Plan Assess & Plan/Chief Complaint Assessment: PNA failed outpatient treatment on unknown antibiotic Fever Leukocytosis PRIYA HTN IDDM GERD, hx of esophageal stricture Hypothyroidism Plan: For persistent cough, will add IV steroids, Advair, guaifenesin, and tussionex Continue duonebs Continue Rocephin and Azithromycin Monitor sugars. Increased insulin requirement will probably be necessary Recheck CMP to monitor kidney function PT to make sure pt is gaining strength and moving about If pt shows improvement in lung sounds, should be ready for home tomorrow Diagnosis/Problems Diagnosis/Problems (1) PNA (pneumonia) Status: Acute (2) Diabetes Status: Chronic Qualifiers: Diabetes mellitus type: type 2 Diabetes mellitus assisted insulin use: with exterminator helper termite use Diabetes mellitus complication status: with kidney complications Diabetes mellitus complication detail: with chronic kidney disease Chronic kidney disease stage: stage 2 (mild) Qualified Codes: E11.22 - Type 2 diabetes mellitus with diabetic chronic kidney disease; N18.2 - Chronic kidney disease, stage 2 (mild); Z79.4 - [facility] (current) use of insulin (3) HTN (hypertension) Status: Chronic Qualifiers: Hypertension type: essential hypertension Qualified Codes: I10 - Essential (primary) hypertension (4) Acute kidney injury Status: Acute (5) History of thyroidectomy, subtotal Status: Chronic (6) Hypothyroidism (acquired) Status: Chronic (7) GERD with stricture Status: Chronic TIMMY KELLY DO Oct 11, 2018 11:39 STEVIE PINK MEDICAL STUDENT Oct 11, 2018 16:32
[2018-10-11] MEDS ORDERED: HYDROCODONE/CHLOR 10MG/5 ML (TUSSIONEX SUSP) 5ML UDC PO SCH (11:45)
[2018-10-11] MEDS: guaiFENesin (MUCINEX) 600 MG TAB PO SCH ×2 (12:13→20:29)
[2018-10-11] MEDS: methylPREDNISolone 40 MG/ML (Solu-MEDROL) VIAL IV SCH ×3 (12:13→23:20)
[2018-10-11] MEDS: ENOXAPARIN 40 MG/0.4 ML (LOVENOX) SYR SC SCH (12:13)
[2018-10-11 12:15] LABS: BASOPHILS % (AUTO) 0 % (0-10); EOSINOPHILS # (AUTO) 0.2 10^3/uL (0.0-0.3); EOSINOPHILS % (AUTO) 2 % (0-10); HEMATOCRIT 32 % (40-54); LYMPHOCYTES # (AUTO) 1.1 X 10^3 (1.0-4.0); LYMPHOCYTES % (AUTO) 16 % (12-44); MEAN CORPUSCULAR HEMOGLOBIN 30 PG (25-34); MEAN CORPUSCULAR HGB CONC 34 G/DL (32-36); MEAN CORPUSCULAR VOLUME 87 FL (80-99); MEAN PLATELET VOLUME 10.4 FL (7.4-10.4); MONOCYTES # (AUTO) 0.6 X 10^3 (0.0-1.0); MONOCYTES % (AUTO) 9 % (0-12); NEUTROPHILS # (AUTO) 4.9 X 10^3 (1.8-7.8); NEUTROPHILS % (AUTO) 72 % (42-75); PLATELET COUNT 188 10^3/uL (130-400); RED CELL DISTRIBUTION WIDTH 12.4 % (10.0-14.5); WHITE BLOOD COUNT 6.7 10^3/uL (4.3-11.0)
[2018-10-11 12:39] LABS: ALBUMIN 3.4 GM/DL (3.2-4.5); BILIRUBIN,TOTAL 0.5 MG/DL (0.1-1.0); CALCIUM 8.4 MG/DL (8.5-10.1); CREATININE SERUM 1.35 MG/DL (0.60-1.30); POTASSIUM 3.6 MMOL/L (3.6-5.0); TOTAL PROTEIN 5.9 GM/DL (6.4-8.2)
--- NOTE | 2018-10-11 14:44 | Physical Therapy Evaluation ---
PT Evaluation-General Medical Diagnosis Admission Date Oct 09, 2018 at 17:55 Medical Diagnosis: fever and malaise Onset Date: Oct 09, 2018 Therapy Diagnosis Therapy Diagnosis: weakness; abn gait Height/Weight Height (Feet): 5 Height (Inches): 9.00 Weight (Pounds): 189 Weight (Ounces): 8.0 Precautions Precautions/Isolations: Standard Precautions Referral Physician: Cassandra Reason for Referral: Evaluation/Treatment Medical History Pertinent Medical History: DM, HTN Current History Presented to the ED with complaints of fever and malaise with harsh cough/ Reviewed History: Yes Social History Home: Single Level Current Living Status: Spouse Entry Into Home: Stairs With Railing Prior/Core FIM Prior Level of Function Therapy Code Descriptions/Definitions Functional [place] Measure: 0=Not Assessed/NA 4=Minimal Assistance 1=Total Assistance 5=Supervision or Setup 2=Maximal Assistance 6=Modified [place] 3=Moderate Assistance 7=Complete [place] Therapy Quality Codes: 6 Independent with activity with or without an assistive device 5 Patient requires set up or clean up by helper. Patient completes activity by themselves 4 Supervision or touching assist (CGA). [place] provide cues , steadying assist 3 The helper provides less than half the effort to complete the activity 2 The helper provides more than half the effort to complete the activity 1 Dependent. The helper does all the effort to complete an activity 7 Patient refused to complete or attempt activity 9 The patient did not perform the activity before the current illness or injury 88 Not attempted due to Medical conditions or safety concerns Functional Abilities and Goals: Independent: Patient completed the activities by him/herself, with or without an assistive device, with no assistance from a helper. Needed Some Help: Patient needed partial assistance from another person to complete activities. Dependent: A helper completed the activities for the patient. Unknown: Not Applicable: Bed Mobility: 7 Transfers (B,C,W/C) (FIM): 7 Gait: 7 community ambulator. PT Evaluation-Current Subjective Pt with walking in the holden. Agrees to PT assessment. Pain Numeric Pain Scale: 0-No Pain Location: No Pain Reported Objective Patient Orientation: Person, Place, Time, Situation Problem Solving: Good ROM/Strength ROM Lower Extremities WNL Strength Lower Extremities WNL Integumentary/Posture Integumentary intact Bowel Incontinence: No Bladder Incontinence: No Posture normal and symmetrical Neuromuscular (Tone, Coordination, Reflexes) WFL Sensory Vision: Functional Hearing: Functional Sensation Right Lower Extremit: Intact Sensation Left Lower Extremity: Intact Transfers Therapy Code Descriptions/Definitions Functional [place] Measure: 0=Not Assessed/NA 4=Minimal Assistance 1=Total Assistance 5=Supervision or Setup 2=Maximal Assistance 6=Modified [place] 3=Moderate Assistance 7=Complete [place] Transfers (B, C, W/C) (FIM): 7 Gait Mode of Locomotion: Walk Gait (FIM): 7 Comments/Gait Description Pt up walking with in holden; no AD. Balance Sitting Static: Good Sitting Dynamic: Good Standing Static: Good Standing Dynamic: Good Assessment/Needs Pt is indep with transfers and gait; safe with walking in holden with spouse without AD. No skilled PT indicated at this time. Rehab Potential: Good PT It Sales Representative Goals Assisted Goals No goals set PT Plan Treatment/Plan Treatment Plan: Discontinue PT Treatment Plan: Other Treatment Duration: Oct 11, 2018 Frequency: Estimated Hrs Per Day: Other Patient and/or Family Agrees t: Yes Safety Risks/Education Patient Education: Safety Issues Teaching Recipient: Patient, Significant Other Teaching Methods: Discussion Response to Teaching: Verbalize Understanding Discharge Recommendations Plan DC PT. Pt indep with mobility. Time/GCodes Time In: 1435 Time Out: 1450 Total Billed Treatment Time: 15 Total Billed Treatment visit EVL 15 NILSON DACOSTA PT Oct 11, 2018 14:44
[2018-10-11] MEDS: RT-ADVAIR HFA 115/21 MCG PER PUFF IH SCH ×2 (15:32→19:19)
[2018-10-11 15:42] VITALS: BP 150/81
[2018-10-11 20:00] VITALS: BP 158/73
[2018-10-11] MEDS: PANTOPRAZOLE 40 MG (PROTONIX) TAB PO SCH (20:29)
[2018-10-11] MEDS: AZITHROMYCIN 250 MG TAB (ZITHROMAX) PO SCH (20:29)
[2018-10-11] MEDS: ASPIRIN E.C. 81 MG (ECOTRIN) TAB PO SCH (20:29)
[2018-10-11] MEDS ORDERED: inSUlin DETERMIR 1 UNIT/0.01 ML (LEVEMIR) CHARGE PER UNIT SQ SCH (21:00)
[2018-10-12] VITALS: BP 121/62
[2018-10-12 04:00] VITALS: BP 126/72
[2018-10-12 05:58] LABS: BASOPHILS % (AUTO) 0 % (0-10); EOSINOPHILS % (AUTO) 0 % (0-10); HEMATOCRIT 32 % (40-54); HEMOGLOBIN 11.2 G/DL (13.3-17.7); LYMPHOCYTES # (AUTO) 0.7 X 10^3 (1.0-4.0); LYMPHOCYTES % (AUTO) 10 % (12-44); MEAN CORPUSCULAR HEMOGLOBIN 30 PG (25-34); MEAN CORPUSCULAR HGB CONC 35 G/DL (32-36); MEAN CORPUSCULAR VOLUME 85 FL (80-99); MEAN PLATELET VOLUME 10.5 FL (7.4-10.4); MONOCYTES # (AUTO) 0.2 X 10^3 (0.0-1.0); MONOCYTES % (AUTO) 3 % (0-12); NEUTROPHILS # (AUTO) 6.2 X 10^3 (1.8-7.8); NEUTROPHILS % (AUTO) 87 % (42-75); PLATELET COUNT 210 10^3/uL (130-400); RED CELL DISTRIBUTION WIDTH 12.5 % (10.0-14.5); WHITE BLOOD COUNT 7.1 10^3/uL (4.3-11.0)
[2018-10-12] MEDS: LEVOTHYROXINE 150 MCG (LEVOTHROID) TAB PO SCH (06:19)
[2018-10-12 06:20] LABS: ALBUMIN 3.6 GM/DL (3.2-4.5); BILIRUBIN,TOTAL 0.7 MG/DL (0.1-1.0); CALCIUM 8.6 MG/DL (8.5-10.1); CREATININE SERUM 1.38 MG/DL (0.60-1.30); POTASSIUM 4.3 MMOL/L (3.6-5.0); TOTAL PROTEIN 6.4 GM/DL (6.4-8.2)
[2018-10-12] MEDS: GLIMEPIRIDE 4 MG (AMARYL) TAB PO SCH (06:20)
[2018-10-12] MEDS: inSUlin ASPART (NovoLOG) 1 UNIT/0.01 ML (CHARGE PER UNIT) SC SCH ×4 (06:20→13:46)
[2018-10-12] MEDS: metFORMIN 500 MG (GLUCOPHAGE) TAB PO SCH (06:20)
[2018-10-12] MEDS: methylPREDNISolone 40 MG/ML (Solu-MEDROL) VIAL IV SCH ×2 (06:20→11:02)
[2018-10-12] MEDS: RT-ALBUTEROL/IPRATROPIUM 3 ML (DUONEB) VIAL INH SCH (06:49)
[2018-10-12] MEDS: RT-ADVAIR HFA 115/21 MCG PER PUFF IH SCH (06:49)
[2018-10-12 08:00] VITALS: BP 150/78
[2018-10-12] MEDS: cefTRIAXone FOR IV USE 1,000 MG in WATER (STERILE) FOR INJECTION 10 ML IV SCH (09:12)
[2018-10-12] MEDS: PANTOPRAZOLE 40 MG (PROTONIX) TAB PO SCH (09:13)
[2018-10-12] MEDS: lisINopril 20 MG (PRINIVIL) TABLET PO SCH (09:13)
[2018-10-12] MEDS: guaiFENesin (MUCINEX) 600 MG TAB PO SCH (09:13)
[2018-10-12] MEDS: ENOXAPARIN 40 MG/0.4 ML (LOVENOX) SYR SC SCH (11:10)
[2018-10-12] MEDS ORDERED: PRED10TA22 PO (11:37)
[2018-10-12] MEDS ORDERED: INSU100V5 SQ (11:37)
[2018-10-12] MEDS ORDERED: GUAI600T43 PO (11:37)
[2018-10-12] MEDS ORDERED: HYDR473S34 PO (11:37)
[2018-10-12] MEDS ORDERED: IPRA3AMP31 INH (11:37)
[2018-10-12] MEDS ORDERED: CEFD300C3 PO (11:37)
--- NOTE | 2018-10-12 11:39 | Discharge Summary-Hospitalist ---
Diagnosis/Chief Complaint Date of Admission Oct 09, 2018 at 17:55 Date of Discharge Discharge Date: Oct 12, 2018 Discharge Diagnosis (1) Acute bronchitis, bacterial Status: Acute (2) Diabetes Status: Chronic (3) HTN (hypertension) Status: Chronic (4) Acute kidney injury Status: Acute (5) History of thyroidectomy, subtotal Status: Chronic (6) Hypothyroidism (acquired) Status: Chronic (7) GERD with stricture Status: Chronic (8) Fever Status: Resolved (9) Cough Status: Acute (10) Acute bronchospasm Status: Acute Discharge Summary Discharge Physical Exam Allergies: Coded Allergies: codeine (Verified Allergy, Unknown, 03/22/17) epinephrine (Verified Allergy, Unknown, 03/22/17) Vitals & I&Os Vital Signs Date Time Temp Pulse Resp B/P (MAP) Pulse Ox O2 Delivery O2 Flow Rate FiO2 10/12/18 12:32 98.6 96 18 146/76 (99) 99 Room Air General Appearance: No Apparent Distress, WD/WN, Chronically ill, Mild Distress , Other (Much improved status) HEENT: PERRL/EOMI, Pharyngeal Erythema Respiratory: No Accessory Muscle Use, Crackles, Decreased Breath Sounds, Expiration Cardiovascular: Regular Rate, Rhythm, No Edema, No Murmur, Tachycardia Gastrointestinal: Non Tender, Soft Extremity: Normal Range of Motion, Non Tender Skin: Normal Color, Warm/Dry Neurologic/Psychiatric: Alert, Oriented x3 Hospital Course Was the Problem List Reviewed?: Yes Hospital course: Patient had an uneventful hospital course he is admitted for high fever and suspicion for pneumonia but chest x-ray failed to identify any infiltrate so he was then classified as bacterial bronchitis with acute bronchospasm responding to low-dose IV steroids along with inhaled corticosteroids along with nebulizer treatments. Fever did not recur. Chronic renal insufficiency did have acute elevation in creatinine which returned back to normal at 1.3. Hyperglycemia was managed with increased insulin from steroid administration. He was in need of a nebulizer machine at time of discharge and he will complete oral antibiotics for bacterial bronchitis along with very low dose steroids for an additional 4 days. He will see his primary care provider next week. Labs (last 24 hrs) Laboratory Tests 10/11/18 20:22: Glucometer 202H 10/12/18 05:30: White Blood Count 7.1, Red Blood Count 3.71L, Hemoglobin 11.2L, Hematocrit 32L, Mean Corpuscular Volume 85, Mean Corpuscular Hemoglobin 30, Mean Corpuscular Hemoglobin Concent 35, Red Cell Distribution Width 12.5, Platelet Count 210, Mean Platelet Volume 10.5H, Neutrophils (%) (Auto) 87H, Lymphocytes (%) (Auto) 10L, Monocytes (%) (Auto) 3, Eosinophils (%) (Auto) 0, Basophils (%) (Auto) 0, Neutrophils # (Auto) 6.2, Lymphocytes # (Auto) 0.7L, Monocytes # (Auto) 0.2, Eosinophils # (Auto) 0.0, Basophils # (Auto) 0.0, Sodium Level 136, Potassium Level 4.3, Chloride Level 107, Carbon Dioxide Level 17L, Anion Gap 12, Blood Urea Nitrogen 22H, Creatinine 1.38H, Estimat Glomerular Filtration Rate 50, BUN/ Creatinine Ratio 16, Glucose Level 218H, Calcium Level 8.6, Corrected Calcium 8.9, Total Bilirubin 0.7, Aspartate Amino Transf (AST/SGOT) 17, Alanine Aminotransferase (ALT/SGPT) 11, Alkaline Phosphatase 63, Total Protein 6.4, Albumin 3.6 10/12/18 05:31: Glucometer 207H 10/12/18 10:36: Glucometer 222H Microbiology 10/09/18 Blood Culture - Preliminary, Resulted No growth 10/09/18 Influenza Types A,B Antigen (JOSE M) - Final, Complete 10/09/18 Urine Culture - Final, Complete See Report Patient resulted labs reviewed. Pending Labs Laboratory Tests 10/12/18 05:30: White Blood Count 7.1, Red Blood Count 3.71, Hemoglobin 11.2, Hematocrit 32, Mean Corpuscular Volume 85, Mean Corpuscular Hemoglobin 30, Mean Corpuscular Hemoglobin Concent 35, Red Cell Distribution Width 12.5, Platelet Count 210, Mean Platelet Volume 10.5, Neutrophils (%) (Auto) 87, Lymphocytes (%) (Auto) 10 , Monocytes (%) (Auto) 3, Eosinophils (%) (Auto) 0, Basophils (%) (Auto) 0, Neutrophils # (Auto) 6.2, Lymphocytes # (Auto) 0.7, Monocytes # (Auto) 0.2, Eosinophils # (Auto) 0.0, Basophils # (Auto) 0.0, Sodium Level 136, Potassium Level 4.3, Chloride Level 107, Carbon Dioxide Level 17, Anion Gap 12, Blood Urea Nitrogen 22, Creatinine 1.38, Estimat Glomerular Filtration Rate 50, BUN/ Creatinine Ratio 16, Glucose Level 218, Calcium Level 8.6, Corrected Calcium 8.9 , Total Bilirubin 0.7, Aspartate Amino Transf (AST/SGOT) 17, Alanine Aminotransferase (ALT/SGPT) 11, Alkaline Phosphatase 63, Total Protein 6.4, Albumin 3.6 10/12/18 05:31: Glucometer 207 10/12/18 10:36: Glucometer 222 Imaging: Reviewed Imaging Films, Reviewed Imaging Report Discussion & Recommendations Discharge Planning: <30 minutes discharge planning Discharge Home Medications: Active Scripts Active Cefdinir 300 Mg Capsule 300 Mg PO BID Prednisone 10 Mg Tab.ds.pk 10 Mg PO BID Take 6 tabs(60mg)daily,decrease by 1 tab(10MG)daily. Levemir (Insulin Determir) 1,000 Units/10 Ml Soln 30 Unit SQ HS 14 Days Mucinex (Guaifenesin) 600 Mg Tab.er.12h 600 Mg PO BID Hydrocodone-Chlorphen ER Susp (Hydrocodone/Chlorphen P-Stirex) 473 Ml [place].er.12h 5 Ml PO Q12HR Iprat-Albut 0.5-3(2.5) mg/3 ml (Ipratropium/Albuterol Sulfate) 3 Ml Ampul.neb 3 Ml INH RTTID Reported Saw [place] 160 Mg Capsule 160 Mg PO MOWEFR Folic Acid 0.8 Mg Tablet 0.8 Mg PO MOWEFR Aspirin EC (Aspirin) 81 Mg Tablet.dr 81 Mg PO HS Metformin HCl 1,000 Mg Tablet 1,000 Mg PO BID Omeprazole 20 Mg Capsule.dr 20 Mg PO DAILY Levothyroxine Sodium 150 Mcg Tablet 150 Mcg PO DAILY Lisinopril 20 Mg Tablet 20 Mg PO DAILY Glimepiride 4 Mg Tablet 4 Mg PO BID Instructions to patient/family Please see electronic discharge instructions given to patient. Clinical Quality Measures DVT/VTE Risk/Contraindication: Risk Factor Score Per Nursin RFS Level Per Nursing on Admit: 3=High Problem Qualifiers (1) Diabetes: Diabetes mellitus type: type 2 Diabetes mellitus radar repairer insulin use: with radar repairer use Diabetes mellitus complication status: with kidney complications Diabetes mellitus complication detail: with chronic kidney disease Chronic kidney disease stage: stage 2 (mild) Qualified Codes: E11.22 - Type 2 diabetes mellitus with diabetic chronic kidney disease; N18.2 - Chronic kidney disease, stage 2 (mild); Z79.4 - assisted (current) use of insulin (2) HTN (hypertension): Hypertension type: essential hypertension Qualified Codes: I10 - Essential ( primary) hypertension (3) Fever: Fever type: unspecified Qualified Codes: R50.9 - Fever, unspecified TIMMY KELLY DO Oct 12, 2018 11:39
[2018-10-12 12:27] VITALS: BP 146/76
[2018-10-12 12:32] VITALS: BP 146/76
--- NOTE | 2018-10-12 13:11 | NUR ---
ROGELIO SALCIDO demonstrates understanding of discharge instructions and accurately returns instructions upon questioning. Copy of Post-Discharge Instructions and Medication Discharge Instructions given to patient and significant other. ROGELIO SALCIDO is able to manage continuing needs after discharge. Patients belongings returned to patient. Skin dry and intact; no breakdown noted. Patient discharged from [facility]- on 10/12/2018 at 1311 . ROGEILO SALCIDO left floor via ambulaltion, accompanied by staff.
== END 2018-10-12 13:11 | disposition home or self-care (01) | DRG 202 ==
LOC: EDUNIT# 15:14 → ER 15:16 → 4TH 17:55 → ER 19:17
PROVIDERS: ADMIT Internal Medicine; ATTEND Internal Medicine
DX: J20.9 Acute bronchitis, unspecified (principal); N17.9 Acute kidney failure, unspecified; I12.9 Hypertensive chronic kidney disease with stage 1 through stage 4 chronic kidney disease, or unspecified chronic kidney disease; E11.22 Type 2 diabetes mellitus with diabetic chronic kidney disease; E11.65 Type 2 diabetes mellitus with hyperglycemia; N18.2 Chronic kidney disease, stage 2 (mild); E89.0 Postprocedural hypothyroidism; K21.9 Gastro-esophageal reflux disease without esophagitis; K22.2 Esophageal obstruction; R00.0 Tachycardia, unspecified; Z79.4 Long term (current) use of insulin; Z88.5 Allergy status to narcotic agent
CPT/HCPCS: 36415; 71045; 80048; 80053; 81000; 82962; 83605; 85007; 85025; 85027; 85610; 85730; 87040; 87088; 87804; 93005; 94640; 94664; 94760

== ENCOUNTER 2021-01-08 13:28 | Outpatient (RCR) | payer MEDICARE, OTHER ==
[~2021-01-08 13:28] MED LIST changes: +ASPI-1238 PO; +CEFD300C3 PO; +FOLI0.8T4 PO; -GLIM4TAB PO; +GLIM4TAB5 PO; +GUAI600T43 PO; +HYDR473S61 PO; +INSU100V5 SQ; +IPRA3AMP31 INH; -LISI-552 PO; +LISI20TA26 PO; -OMEP20CA12 PO; +OMEP20CA18 PO; +PRED10TA22 PO; +SAW160CA3 PO
== END 2021-01-08 14:26 | disposition home or self-care (01) ==
PROVIDERS: ATTEND Physician Assistant
DX: M54.5 Low back pain (principal); R26.81 Unsteadiness on feet; R53.1 Weakness

== ENCOUNTER 2021-06-23 16:26 | Emergency (ER) | payer MEDICARE, OTHER ==
[~2021-06-23] VITALS: Ht 175 cm; Wt 80.0 kg
--- NOTE | 2021-06-23 17:46 | ED Psychosocial ---
General Chief Complaint: Glucose Problems Stated Complaint: BLOOD SUGAR 356 Nursing Triage Note: PT TO ROOM 4 PER W/C PT CO OF ELEVATED BS TODAY. FSBS-370. PT HAS R WRIST PAIN FROM FALL FEW WEEKS AGO, PT STATES WAS SEEN BY NED YESTERDAY AND SURI [place]. PT STATES NOT SURE IF HE HAS TAKEN HIS INSULIN TODAY. PT ALSO RECIEVED STEROID INJECTION FEW WEEKS AGO. PT ALSO CO OF BILATERAL LEG WEAKNESS Source: patient Exam Limitations: no limitations (SONNY MARTINEZ MED STUDENT) History of Present Illness Date Seen by Provider: Jun 23, 2021 Time Seen by Provider: 17:12 Initial Comments This is Rogelio an 80 yo male that presented to the ED with the chief complaint of high blood glucose levels. Pt is a poor historian and his and daughter provided most of the history. They stated that he didn't take his metformin this morning or his insulin before lunch and after doing a random blood glucose found it to be 365. Then the family stated that he was acting different than normal and became very concerned. He has had diabetes for many years, with A1Cs as high as 10, and it remains uncontrolled and unchecked. After further discussion with the family it was evident that their main concern in chronic cognitive decline. Over the past couple of months his describes incontinence, forgetting simple items and names, balance issues, depression, and stating random facts at odd times. He has a PMH of diabetes and thyroid removal. Pt complained of wrist, ankle, and knee pain that was described as chronic. Pts denies recent falls or trauma. On the way out of the room the talked with me privately and stated that she has been concerned for some time for the risk of dementia. She stated that she has been in contact with Dr. Mayes multiple times about the possibility of beginning medication. Timing/Duration: getting worse, changing over time, other (previous months) Severity: moderate Associated Symptoms: impaired concentration, other (depression, cognitive deficiet ) (SONNY MARTINEZ MED STUDENT) Initial Comments I had a long discussion with the patient, patient's , and daughter. It appears his decline has been progressive over about a year and more obvious in the past couple of months. He is not taking his medications appropriately. They do not have an organized system for administering medications or reminders for taking insulin. Patient cannot remember when he takes his medications. We spent a significant amount of time discussing strategies for improving this including use of a pill organizer and a setting phone alarms for insulin administration. I also discussed the situation with NED Dela Cruz by phone. additionally describes a recent fall. She reports he was seen at the orthopedic clinic for right forearm pain. There was "a small fracture" noted but no stabilization with a splint or cast was required. Patient has an appointment with Dr. Mayes tomorrow. specifically states the following concerns. Today he woke up around 0300. He was unable to get up. He reported his knees and hands hurt. He then slept off and on throughout the day. He got up at noon and made him self lunch but did not take any insulin. She returned home to find him sitting on the ottoman which is an unusual activity for him. He stated he could not get up. He has been incontinent recently x3. During collection of this history patient sometimes starts telling detailed stories from the remote past or from remote history that are completely out of context to the conversation. He does not appear to be following the details of our conversation. However, his speech is articulate. He is showing definite features of dementia. He did demonstrate ability to get up independently and ambulate around the room. (YESSI LOPEZ MD) Allergies and Home Medications Allergies Coded Allergies: codeine (Verified Allergy, Unknown, 03/22/17) epinephrine (Verified Allergy, Unknown, 03/22/17) Patient Home Medication List Home Medication List Reviewed: Yes (YESSI LOPEZ MD) Aspirin (Aspirin EC) 81 Mg Tablet.dr, 81 MG PO HS, (Reported) Entered as Reported by: VLADIMIR MCNAMARA on 10/10/18 1200 Cefdinir (Cefdinir) 300 Mg Capsule, 300 MG PO BID Prescribed by: TIMMY KELLY on 10/12/18 1137 Folic Acid (Folic Acid) 0.8 Mg Tablet, 0.8 MG PO MoWeFr, (Reported) Entered as Reported by: VLADIMIR MCNAMARA on 10/10/18 1200 Glimepiride (Glimepiride) 4 Mg Tablet, 4 MG PO BID, (Reported) Entered as Reported by: GABRIELA JACOBS on 03/22/17 1825 Guaifenesin (Mucinex) 600 Mg Tab.er.12h, 600 MG PO BID Prescribed by: TIMMY KELLY on 10/12/181136 Hydrocodone/Chlorphen P-Stirex (Hydrocodone-Chlorphen ER Susp) 473 Ml Brandy.er.12h, 5 ML PO Q12HR Prescribed by: TIMMY KELLY on 10/12/18 113 Insulin Determir (Levemir) 1,000 Units/10 Ml Soln, 30 UNIT SQ HS Prescribed by: TIMMY KELLY on 10/12/181136 Ipratropium/Albuterol Sulfate (Iprat-Albut 0.5-3(2.5) mg/3 ml) 3 Ml Ampul.neb, 3 ML INH RTTID Prescribed by: TIMMY KELLY on 10/12/181136 Levothyroxine Sodium (Levothyroxine Sodium) 150 Mcg Tablet, 150 MCG PO DAILY, (Reported) Entered as Reported by: GABRIELA JACOBS on 03/22/171824 Lisinopril (Lisinopril) 20 Mg Tablet, 20 MG PO DAILY, (Reported) Entered as Reported by: GABRIELA JACOBS on 03/22/171824 Metformin HCl (Metformin HCl) 1,000 Mg Tablet, 1,000 MG PO BID, (Reported) Entered as Reported by: GABREILA JACOBS on 03/22/171824 Omeprazole (Omeprazole) 20 Mg Capsule.dr, 20 MG PO DAILY, (Reported) Entered as Reported by: GABRIELA JACOBS on 03/22/171824 Prednisone (Prednisone) 10 Mg Tab.ds.pk, 10 MG PO BID Prescribed by: TIMMY KELLY on 10/12/181136 Saw [place] (Saw [place]) 160 Mg Capsule, 160 MG PO MoWeFr, (Reported) Entered as Reported by: VLADIMIR MCNAMARA on 10/10/18 1200 Review of Systems Constitutional: see HPI, malaise, weakness EENTM: no symptoms reported Respiratory: no symptoms reported Cardiovascular: no symptoms reported Gastrointestinal: no symptoms reported Genitourinary: no symptoms reported Musculoskeletal: joint pain, joint swelling Skin: no symptoms reported Psychiatric/Neurological: See HPI, Depressed, Pre-Existing Deficit, Weakness (SONNY MARTINEZ MED STUDENT) Past Pftmchi-Pzrven-Tunajc Hx Patient Social History Tobacco Use?: No Use of E-Cig and/or Vaping dev: No Substance use?: No Alcohol Use?: No Pt feels they are or have been: No (SONNY MARTINEZ STUDENT) Immunizations Up To Date Second COVID19 Vaccination [place]: PFITZER BOTH VACCINES (SONNY MARTINEZ) Seasonal Allergies Seasonal Allergies: No (SONNY MARTINEZ) Past Medical History Surgeries: Yes Adenoidectomy, Gallbladder, Orthopedic, Thyroidectomy, Tonsillectomy Respiratory: No Cardiac: Yes Hypertension Neurological: No Sexually Transmitted Disease: No HIV/AIDS: No Genitourinary: No Gastrointestinal: Yes Gastroesophageal Reflux Musculoskeletal: No Endocrine: Yes Diabetes, Insulin dep, Hypothyroidsim HEENT: No Cancer: No Psychosocial: No Integumentary: Yes Blood Disorders: No (SONNY MARTINEZ STUDENT) Family Medical History Patient reports no known family medical history. Physical Exam Vital Signs - First Documented 06/23/21 06/23/21 16:33 19:51 Temp 37.7 Pulse 88 Resp 18 B/P (MAP) 139/73 (95) Pulse Ox 96 O2 Delivery Room Air (YESSI LOPEZ MD) Capillary Refill : Less Than 3 Seconds (SONNY MARTINEZ STUDENT) Height, Weight, BMI Height: 5'9.00" Weight: 189lbs. 8.0oz. 85.933909bc; 26.00 BMI Method:Stated General Appearance: WD/WN, no apparent distress HEENT: PERRL/EOMI Neck: non-tender, supple, normal inspection Respiratory: chest non-tender, lungs clear, normal breath sounds, no respiratory distress, no accessory muscle use Cardiovascular: normal peripheral pulses, regular rate, rhythm, no edema, no gallop, no murmur Gastrointestinal: normal bowel sounds, non tender, soft Extremities: normal inspection, no calf tenderness, normal capillary refill Neurologic/Psychiatric: motor weakness, depressed affect Appearance/Memory: impaired insight, impaired recent memory, impaired remote memory Behavior/Eye Contact: cooperative, other (flight of thought, conversation out of context to questions asked) Thoughts/Hallucinations: no apparent hallucination Skin: normal color, warm/dry Lymphatic: no adenopathy (SONNY MARTINEZ STUDENT) Progress/Results/Core Measures Results/Orders Lab Results Laboratory Tests Test 06/23/21 16:36 06/23/21 16:52 06/23/21 17:59 Range/Units Glucometer 370 H 70-110 MG/DL White Blood Count 8.6 4.3-11.0 10^3/uL Red Blood Count 4.06 L 4.30-5.52 10^6/uL Hemoglobin 12.1 L 13.3-17.7 g/dL Hematocrit 35 L 40-54 % Mean Corpuscular Volume 87 80-99 fL Mean Corpuscular Hemoglobin 30 25-34 pg Mean Corpuscular Hemoglobin Concent 34 32-36 g/dL Red Cell Distribution Width 11.8 10.0-14.5 % Platelet Count 266 130-400 10^3/uL Mean Platelet Volume 10.2 9.0-12.2 fL Immature Granulocyte % (Auto) 0 % Neutrophils (%) (Auto) 73 42-75 % Lymphocytes (%) (Auto) 16 12-44 % Monocytes (%) (Auto) 10 0-12 % Eosinophils (%) (Auto) 1 0-10 % Basophils (%) (Auto) 1 0-10 % Neutrophils # (Auto) 6.2 1.8-7.8 10^3/uL Lymphocytes # (Auto) 1.4 1.0-4.0 10^3/uL Monocytes # (Auto) 0.9 0.0-1.0 10^3/uL Eosinophils # (Auto) 0.1 0.0-0.3 10^3/uL Basophils # (Auto) 0.0 0.0-0.1 10^3/uL Immature Granulocyte # (Auto) 0.0 0.0-0.1 10^3/uL Sodium Level 132 L 135-145 MMOL/L Potassium Level 4.4 3.6-5.0 MMOL/L Chloride Level 99 98-107 MMOL/L Carbon Dioxide Level 23 21-32 MMOL/L Anion Gap 10 5-14 MMOL/L Blood Urea Nitrogen 25 H 7-18 MG/DL Creatinine 1.44 H 0.60-1.30 MG/DL Estimat Glomerular Filtration Rate 47 BUN/Creatinine Ratio 17 Glucose Level 391 H 70-105 MG/DL Calcium Level 9.3 8.5-10.1 MG/DL Corrected Calcium 9.8 8.5-10.1 MG/DL Magnesium Level 1.6 1.6-2.4 MG/DL Total Bilirubin 1.2 H 0.1-1.0 MG/DL Aspartate Amino Transf (AST/SGOT) 12 5-34 U/L Alanine Aminotransferase (ALT/SGPT) 12 0-55 U/L Alkaline Phosphatase 117 40-136 U/L Total Protein 6.6 6.4-8.2 GM/DL Albumin 3.4 3.2-4.5 GM/DL Thyroid Stimulating Hormone (TSH) 0.33 L 0.35-4.94 UIU/ML Free Thyroxine 1.11 0.70-1.48 NG/DL Urine Color YELLOW Urine Clarity CLEAR Urine pH 6.0 5-9 [address] [place] 1.020 1.016-1.022 Urine Protein NEGATIVE NEGATIVE Urine Glucose (UA) 3+ H NEGATIVE Urine Ketones 1+ H NEGATIVE Urine Nitrite NEGATIVE NEGATIVE Urine Bilirubin NEGATIVE NEGATIVE Urine Urobilinogen 0.2 < = 1.0 MG/DL Urine Leukocyte Esterase NEGATIVE NEGATIVE Urine RBC (Auto) NEGATIVE NEGATIVE Urine RBC NONE /HPF Urine WBC NONE /HPF Urine Crystals PRESENT H /LPF Urine Amorphous Sediment RARE KAYA URATES H /LPF Urine Bacteria TRACE /HPF Urine Casts NONE /LPF Urine Mucus NEGATIVE /LPF Urine Culture Indicated NO (YESSI LOPEZ MD) My Orders Orders - YESSI LOPEZ MD Accucheck Stat ONCE (06/23/21 17:39) Cbc With Automated Diff (06/23/21 17:43) Comprehensive Metabolic Panel (06/23/21 17:43) Magnesium (06/23/21 17:43) Ua Culture If Indicated (06/23/21 17:43) Ed Iv/Invasive Line Start (06/23/21 17:43) Ct Head Wo (06/23/21 17:43) Ns Iv 1000 Ml (Sodium Chloride 0.9%) (06/23/21 18:45) Thyroid Stimulating Hormone (06/23/21 18:38) Free T4 (Free Thyroxine) (06/23/21 18:38) (YESSI LOPEZ MD) Vital Signs/I&O 06/23/21 19:51 Pulse 92 Resp 20 B/P (MAP) 139/75 Pulse Ox 99 O2 Delivery Room Air (YESSI LOPEZ MD) Blood Pressure Mean: 95 Departure Impression Primary Impression: Hyperglycemia Additional Impressions: Type 2 diabetes mellitus Qualified Codes: E11.65 - Type 2 diabetes mellitus with hyperglycemia; Z79.4 - alf (current) use of insulin Cerebral atrophy Disposition: 01 HOME, SELF-CARE Condition: Stable Departure-Patient Inst. Decision time for Depature: 19:39 (YESSI LOEPZ MD) Referrals: ROGELIO MAYES MD (PCP/Family) Primary Care Physician Patient Instructions: Dementia ED, Type 2 Diabetes Add. Discharge Instructions: Keep your follow-up appointment with Dr. Mayes tomorrow. Please discuss your labs and CT imaging with him at that appointment. Please monitor your blood sugars closely. Target blood sugars between 100 and 200. Please check your blood sugar fasting in the morning and 2 hours after each meal. Record these blood sugars and discuss them with Dr. Mayes. To encourage medication compliance, please obtain a pill organizer to help you keep track of your medications. Call with questions or concerns. Return to the ER if you have worsening symptoms. All discharge instructions reviewed with patient and/or family. Voiced understanding. Medical Student Attestation and Attending Note: I have personally interviewed and examined this patient along with Sonny Martinez MS4. I have reviewed student documentation including history, physical, and assessments. I agree with the documentation except where otherwise noted. Exam: General: Alert, oriented, no acute distress, well developed HEENT: Normocephalic and atraumatic, mucous membranes a little pasty Heart: Regular rate and rhythm without murmur Lungs: Clear to auscultation bilaterally with normal effort Abdomen: Soft, nontender, nondistended, normal bowel sounds Neuropsych: Alert, speech is articulate but content is out of context, no focal deficits, gait is a little shuffled but he is able to independently get up and walk around the room Skin: Warm and dry without rashes I spent at least 30 minutes in conversation with this patient and his family. We discussed strategies for managing his medications including obtaining a pill organizer. We discussed setting alarms on their phones for insulin administration. I recommended checking blood sugars fasting in the morning and 2 hours after each meal for the next couple of days while trying to straighten out his blood sugars. They were instructed to provide a very low carbohydrate, low sugar meal for supper tonight. He is to take his usual insulin. A liter of normal saline was infused during the course of his ER stay to help with his hyperglycemia. They are encouraged to discuss all of this with Dr. Mayes at the appointment tomorrow. Cerebral atrophy was noted on the CT scan. This was discussed with patient and family. The likely diagnosis of dementia was also discussed with patient and family. The patient did not seem to fully comprehend this discussion. (YESSI LOPEZ MD) Copy Copies To 1: ROGELIO MAYES MD Copies To 2: AUGUSTINE LERNER DYLAN MED STUDENT Jun 23, 2021 17:46 YESSI LOPEZ MD Jun 23, 2021 19:42
[2021-06-23 17:53] LABS: BASOPHILS % (AUTO) 1 % (0-10); EOSINOPHILS # (AUTO) 0.1 10^3/uL (0.0-0.3); EOSINOPHILS % (AUTO) 1 % (0-10); HEMATOCRIT 35 % (40-54); HEMOGLOBIN 12.1 g/dL (13.3-17.7); LYMPHOCYTES # (AUTO) 1.4 10^3/uL (1.0-4.0); LYMPHOCYTES % (AUTO) 16 % (12-44); MEAN CORPUSCULAR HEMOGLOBIN 30 pg (25-34); MEAN CORPUSCULAR HGB CONC 34 g/dL (32-36); MEAN CORPUSCULAR VOLUME 87 fL (80-99); MEAN PLATELET VOLUME 10.2 fL (9.0-12.2); MONOCYTES # (AUTO) 0.9 10^3/uL (0.0-1.0); MONOCYTES % (AUTO) 10 % (0-12); NEUTROPHILS # (AUTO) 6.2 10^3/uL (1.8-7.8); NEUTROPHILS % (AUTO) 73 % (42-75); PLATELET COUNT 266 10^3/uL (130-400); WHITE BLOOD COUNT 8.6 10^3/uL (4.3-11.0)
[2021-06-23 17:55] LABS: ALBUMIN 3.4 GM/DL (3.2-4.5); POTASSIUM 4.4 MMOL/L (3.6-5.0)
[2021-06-23 17:56] LABS: CALCIUM 9.3 MG/DL (8.5-10.1)
[2021-06-23 17:58] LABS: TOTAL PROTEIN 6.6 GM/DL (6.4-8.2)
[2021-06-23 18:00] LABS: BILIRUBIN,TOTAL 1.2 MG/DL (0.1-1.0)
[2021-06-23 18:01] LABS: CREATININE SERUM 1.44 MG/DL (0.60-1.30)
[2021-06-23 18:04] LABS: MAGNESIUM 1.6 MG/DL (1.6-2.4)
[2021-06-23 18:06] LABS: BILIRUBIN,URINE NEGATIVE (NEGATIVE); CLARITY,URINE CLEAR; COLOR,URINE YELLOW; GLUCOSE, URINE (UA) 3+ (NEGATIVE); KETONES,URINE 1+ (NEGATIVE); LEUKOCYTE ESTERASE ,URINE NEGATIVE (NEGATIVE); NITRITE,URINE NEGATIVE (NEGATIVE); PROTEIN,URINE NEGATIVE (NEGATIVE)
[2021-06-23 18:13] LABS: AMORPHOUS SEDIMENT,UR RARE AMOR URATES /LPF; BACTERIA,URINE TRACE /HPF
[2021-06-23] MEDS ORDERED: NS IV 1000 ML 1,000 ML IV SCH (18:45)
--- NOTE | 2021-06-23 18:56 | Diagnostic Imaging Report ---
PROCEDURE: CT head without contrast. TECHNIQUE: Multiple contiguous axial images were obtained through the brain without the use of intravenous contrast. Auto Exposure Controls were utilized during the CT exam to meet ALARA standards for radiation dose reduction. INDICATION: Altered mental status with hypoglycemia. No relevant comparison is available. FINDINGS: There is age-related global volume loss. There are no findings of intracranial mass effect or shift. There is no hydrocephalus. There is no evidence of acute hemorrhage or of an extra-axial collection. There are no findings of territorial loss of coppola-white differentiation or vasogenic edema. The basilar cisterns are patent. The posterior fossa demonstrates no acute process. The mastoids are clear. There is mild mucosal thickening within the visualized paranasal sinuses. Orbital contents unremarkable. IMPRESSION: Age-related global volume loss without CT evidence of an acute intracranial abnormality. Dictated by: Dictated on workstation # [id number]
[2021-06-23 19:12] LABS: FREE T4 (FREE THYROXINE) 1.11 NG/DL (0.70-1.48)
[2021-06-23 19:51] VITALS: BP 139/75
== END 2021-06-23 19:50 | disposition home or self-care (01) ==
LOC: EDUNIT# 16:26 → ER 16:28
DX: E11.65 Type 2 diabetes mellitus with hyperglycemia (principal); G31.9 Degenerative disease of nervous system, unspecified; I10 Essential (primary) hypertension; K21.9 Gastro-esophageal reflux disease without esophagitis; E03.9 Hypothyroidism, unspecified; Z79.4 Long term (current) use of insulin; Z79.890 Hormone replacement therapy; Z79.899 Other long term (current) drug therapy; Z79.52 Long term (current) use of systemic steroids; Z79.82 Long term (current) use of aspirin
CPT/HCPCS: 36415; 70450; 80053; 81000; 82947; 83735; 84439; 84443; 85025

== ENCOUNTER → 2021-08-06 | Outpatient (CLI) | payer MEDICARE, OTHER | LOC: CARD 11:52 | PROVIDERS: ATTEND Internal Medicine | DX: R00.2 Palpitations (principal) | CPT/HCPCS: 93225; 93226 ==

== ENCOUNTER → 2021-08-21 | Outpatient (CLI) | payer MEDICARE, OTHER | LOC: CARD 14:00 | PROVIDERS: ATTEND Internal Medicine Cardiovascular Disease | DX: I08.0 Rheumatic disorders of both mitral and aortic valves (principal); I11.9 Hypertensive heart disease without heart failure | CPT/HCPCS: 93306 ==

== ENCOUNTER → 2021-09-15 | Outpatient (CLI) | payer MEDICARE, OTHER ==
--- NOTE | 2021-09-15 14:01 | Diagnostic Imaging Report ---
PROCEDURE: MR imaging of the brain without contrast. TECHNIQUE: Multiplanar, multisequence MR imaging of the brain was performed without contrast. INDICATION: Memory loss. COMPARISON: CT head on 06/23/2021. FINDINGS: No acute ischemia, mass, or hemorrhage. The ventricles and cortical sulci are diffusely prominent. The basilar cisterns are symmetric and unremarkable. The sellar and suprasellar regions have a normal appearance. The brainstem and posterior fossa are unremarkable. The paranasal sinuses and mastoid air cells demonstrate normal signal characteristics. The globes and orbits are symmetric and unremarkable. The scalp and calvarium have a normal appearance. IMPRESSION: 1. No acute ischemia, mass, or hemorrhage. 2. Generalized parenchymal volume loss. Dictated by: Dictated on workstation # [id number]
== END ==
LOC: RAD 13:15
PROVIDERS: ATTEND Nurse Practitioner Family
DX: G31.9 Degenerative disease of nervous system, unspecified (principal)
CPT/HCPCS: 70551

== ENCOUNTER 2022-09-02 10:25 | Emergency (ER) | payer MEDICARE, OTHER ==
[~2022-09-02] VITALS: Ht 175 cm; Wt 77.0 kg
--- NOTE | 2022-09-02 10:50 | ED General ---
General Chief Complaint: General Problems/Pain Stated Complaint: WEAKNESS Nursing Triage Note: ARRIVED VIA EMS WITH COMPLAINTS OF GENERALIZED WEAKNESS AND HIGH BLOOD SUGAR. EMS REPORTS MULITIPLE NON INJURY FALLS. PT HAS DEMENTIA ET POOR HISTORIAN. Source of Information: Patient Exam Limitations: No Limitations History of Present Illness Date Seen by Provider: Sep 02, 2022 Time Seen by Provider: 10:35 Initial Comments Here by EMS from assisted living where he was reported to have fallen but this is not actually a concern. EMS reports that the assisted living staff were concerned about increasing confusion and weakness. He apparently just recovered from urinary tract infection and follows with Dr. Mauro. He does have known history of diabetes and likes to eat sweets. His blood sugar has been in the 300s recently. Daughter arrives and confirms that his blood sugars have been elevated. She does report that he has had recent changes to his insulin. He apparently had decreased dosing of his insulin through the day but was added to sliding scale per the daughter. She reports that he does have dementia but that seems to have worsened recently. Also notes that he likes to eat lots of sweets. He lives with his at assisted living. Patient denies any specific complaints and states he really does not know why he is here. Denies pain, nausea, vomiting or breathing problems. Timing/Duration: 2-3 Days, Getting Worse (Per [facility] report) Severity: Mild Associated Systoms: No Chest Pain, No Cough, No Headaches, No Nausea/Vomiting, No Shortness of Air; Weakness Allergies and Home Medications Allergies Coded Allergies: codeine (Verified Allergy, Unknown, 03/22/17) epinephrine (Verified Allergy, Unknown, 03/22/17) Patient Home Medication List Home Medication List Reviewed: Yes Aspirin (Aspirin EC) 81 Mg Tablet.dr, 81 MG PO HS, (Reported) Entered as Reported by: VLADIMIR MCNAMARA on 10/10/18 1200 Cefdinir (Cefdinir) 300 Mg Capsule, 300 MG PO BID Prescribed by: TIMMY KELLY on 10/12/18 1137 Folic Acid (Folic Acid) 0.8 Mg Tablet, 0.8 MG PO MoWeFr, (Reported) Entered as Reported by: VLADIMIR MCNAMARA on 10/10/18 1200 Glimepiride (Glimepiride) 4 Mg Tablet, 4 MG PO BID, (Reported) Entered as Reported by: GABRIELA JACOBS on 03/22/171824 Guaifenesin (Mucinex) 600 Mg Tab.er.12h, 600 MG PO BID Prescribed by: TIMMY KELLY on 10/12/181136 Hydrocodone/Chlorphen P-Stirex (Hydrocodone-Chlorphen ER Susp) 473 Ml Brandy.er.12h, 5 ML PO Q12HR Prescribed by: TIMMY KELLY on 10/12/181136 Insulin Determir (Levemir) 1,000 Units/10 Ml Soln, 30 UNIT SQ HS Prescribed by: TIMMY KELLY on 10/12/181136 Ipratropium/Albuterol Sulfate (Iprat-Albut 0.5-3(2.5) mg/3 ml) 3 Ml Ampul.neb, 3 ML INH RTTID Prescribed by: TIMMY KELLY on 10/12/181136 Levothyroxine Sodium (Levothyroxine Sodium) 150 Mcg Tablet, 150 MCG PO DAILY, (Reported) Entered as Reported by: GABRIELA JACOBS on 03/22/171824 Lisinopril (Lisinopril) 20 Mg Tablet, 20 MG PO DAILY, (Reported) Entered as Reported by: GABRIELA JACOBS on 03/22/171824 Metformin HCl (Metformin HCl) 1,000 Mg Tablet, 1,000 MG PO BID, (Reported) Entered as Reported by: GABRIELA JACOBS on 03/22/171824 Omeprazole (Omeprazole) 20 Mg Capsule.dr, 20 MG PO DAILY, (Reported) Entered as Reported by: GABRIELA JACOBS on 03/22/171824 Prednisone (Prednisone) 10 Mg Tab.ds.pk, 10 MG PO BID Prescribed by: TIMMY KELLY on 10/12/181136 [place] (Saw [place]) 160 Mg Capsule, 160 MG PO MoWeFr, (Reported) Entered as Reported by: VLADIMIR MCNAMARA on 10/10/18 1200 Review of Systems Review of Systems Constitutional: see HPI; No chills, No fever EENTM: No nose congestion, No throat pain Respiratory: No cough, No short of breath Cardiovascular: No chest pain, No edema Gastrointestinal: No nausea, No vomiting Genitourinary: no symptoms reported Musculoskeletal: No back pain, No muscle pain; muscle weakness Skin: no symptoms reported Psychiatric/Neurological: Weakness, Other (Confusion) All Other Systems Reviewed Negative Unless Noted: Yes Past Hdmwrlb-Yhqefb-Mjindd Hx Patient Social History Tobacco Use?: No Substance use?: No Alcohol Use?: No Immunizations Up To Date PED Vaccines UTD: No Second COVID19 Vaccination [place]: PFITZER BOTH VACCINES Seasonal Allergies Seasonal Allergies: No Past Medical History Surgeries: Yes Adenoidectomy, Gallbladder, Orthopedic, Thyroidectomy, Tonsillectomy Respiratory: No Cardiac: Yes Hypertension Neurological: No Sexually Transmitted Disease: No HIV/AIDS: No Genitourinary: No Gastrointestinal: Yes Gastroesophageal Reflux Musculoskeletal: No Endocrine: Yes Diabetes, Insulin dep, Hypothyroidsim HEENT: No Cancer: No Psychosocial: No Integumentary: Yes Blood Disorders: No Family Medical History Reviewed Nursing Family Hx Patient reports no known family medical history. No Pertinent Family Hx Physical Exam Vital Signs Vital Signs - First Documented 09/02/22 10:25 Temp 36.7 Pulse 99 Resp 16 B/P (MAP) 137/81 (99) Pulse Ox 97 O2 Delivery Room Air Capillary Refill : Less Than 3 Seconds Height, Weight, BMI Height: 5'9.00" Weight: 189lbs. 8.0oz. 85.439837mw; 25.00 BMI Method:Stated General Appearance: No Apparent Distress, WD/WN HEENT: PERRL/EOMI, Pharynx Normal Neck: Non Tender, Supple Respiratory: Lungs Clear, Normal Breath Sounds Cardiovascular: No Murmur, Tachycardia Gastrointestinal: Non Tender, Soft Back: Normal Inspection, No CVA Tenderness, No Vertebral Tenderness Extremity: Normal Range of Motion, Non Tender Neurologic/Psychiatric: Alert, Other (Oriented to self but seems confused to time and situation.) Skin: Normal Color, Warm/Dry Progress/Results/Core Measures Suspected Sepsis SIRS Temperature: Pulse: 99 Respiratory Rate: 16 Laboratory Tests 09/02/22 10:35: White Blood Count 13.1H Blood Pressure 137 /81 Mean: 99 Laboratory Tests 09/02/22 10:35: Creatinine 1.97H, Platelet Count 153, Total Bilirubin 1.3H Results/Orders Lab Results Laboratory Tests Test 09/02/22 10:35 09/02/22 12:50 09/02/22 13:11 Range/Units White Blood Count 13.1 H 4.3-11.0 10^3/uL Red Blood Count 3.91 L 4.30-5.52 10^6/uL Hemoglobin 11.5 L 13.3-17.7 g/dL Hematocrit 33 L 40-54 % Mean Corpuscular Volume 85 80-99 fL Mean Corpuscular Hemoglobin 29 25-34 pg Mean Corpuscular Hemoglobin Concent 35 32-36 g/dL Red Cell Distribution Width 12.8 10.0-14.5 % Platelet Count 153 130-400 10^3/uL Mean Platelet Volume 11.2 9.0-12.2 fL Immature Granulocyte % (Auto) 0 % Neutrophils (%) (Auto) 78 H 42-75 % Lymphocytes (%) (Auto) 11 L 12-44 % Monocytes (%) (Auto) 10 0-12 % Eosinophils (%) (Auto) 1 0-10 % Basophils (%) (Auto) 0 0-10 % Neutrophils # (Auto) 10.2 H 1.8-7.8 10^3/uL Lymphocytes # (Auto) 1.5 1.0-4.0 10^3/uL Monocytes # (Auto) 1.3 H 0.0-1.0 10^3/uL Eosinophils # (Auto) 0.1 0.0-0.3 10^3/uL Basophils # (Auto) 0.0 0.0-0.1 10^3/uL Immature Granulocyte # (Auto) 0.1 0.0-0.1 10^3/uL Sodium Level 133 L 135-145 MMOL/L Potassium Level 5.3 H 3.6-5.0 MMOL/L Chloride Level 101 98-107 MMOL/L Carbon Dioxide Level 24 21-32 MMOL/L Anion Gap 8 5-14 MMOL/L Blood Urea Nitrogen 31 H 7-18 MG/DL Creatinine 1.97 H 0.60-1.30 MG/DL Estimat Glomerular Filtration Rate 33 BUN/Creatinine Ratio 16 Glucose Level 362 H 70-105 MG/DL Glucometer 348 H 234 H 70-110 MG/DL Calcium Level 9.0 8.5-10.1 MG/DL Corrected Calcium 9.2 8.5-10.1 MG/DL Total Bilirubin 1.3 H 0.1-1.0 MG/DL Aspartate Amino Transf (AST/SGOT) 14 5-34 U/L Alanine Aminotransferase (ALT/SGPT) 15 0-55 U/L Alkaline Phosphatase 96 40-136 U/L Troponin I 0.028 <0.028 NG/ML C-Reactive Protein High Sensitivity 2.61 H 0.00-0.50 MG/DL Total Protein 6.7 6.4-8.2 GM/DL Albumin 3.7 3.2-4.5 GM/DL Urine Color YELLOW Urine Clarity CLEAR Urine pH 7.0 5-9 Urine Specific [place] 1.020 1.016-1.022 Urine Protein TRACE H NEGATIVE Urine Glucose (UA) 3+ H NEGATIVE Urine Ketones NEGATIVE NEGATIVE Urine Nitrite NEGATIVE NEGATIVE Urine Bilirubin NEGATIVE NEGATIVE Urine Urobilinogen 0.2 < = 1.0 MG/DL Urine Leukocyte Esterase NEGATIVE NEGATIVE Urine RBC (Auto) 1+ H NEGATIVE Urine RBC 5-10 H /HPF Urine WBC NONE /HPF Urine Squamous Epithelial Cells RARE /HPF Urine Crystals NONE /LPF Urine Bacteria NEGATIVE /HPF Urine Casts NONE /LPF Urine Mucus NEGATIVE /LPF Urine Culture Indicated NO My Orders Orders - SOFI CORADO MD Ekg Tracing (09/02/22 10:50) Monitor-Rhythm Ecg Trace Only (09/02/22 10:50) Straight Cath For Spec.-Adult (09/02/22 10:50) Cbc With Automated Diff (09/02/22 10:50) Comprehensive Metabolic Panel (09/02/22 10:50) Hs C Reactive Protein (09/02/22 10:50) Troponin I [place] (09/02/22 10:50) Ua Culture If Indicated (09/02/22 10:50) Ed Iv/Invasive Line Start (09/02/22 10:50) Ns Iv 500 Ml (Sodium Chloride 0.9%) (09/02/22 11:00) Chest 1 View, Ap/Pa Only (09/02/22 10:50) Insulin (Regular) Human (Novolin R (Per (09/02/22 11:31) Ct Head Wo (09/02/22 11:37) Lidocaine 2% (Urojet) (Xylocaine Urojet) (09/02/22 13:03) Medications Given in ED Current Medications Medications Dose Ordered Sig/[place] Route Start Time Stop Time Status Last Admin Dose Admin Sodium Chloride 500 ml @ 0 mls/hr Q0M ONCE IV 09/02/22 11:00 09/02/22 11:01 DC 09/02/22 11:04 500 MLS/HR Sodium Chloride 500 ml @ 0 mls/hr Q0M ONCE IV 09/02/22 12:15 09/02/22 12:16 DC 09/02/22 12:14 500 MLS/HR Vital Signs/I&O 09/02/22 10:25 Temp 36.7 Pulse 99 Resp 16 B/P (MAP) 137/81 (99) Pulse Ox 97 O2 Delivery Room Air Capillary Refill : Less Than 3 Seconds Blood Pressure Mean: 99 Progress Note : Progress Note Seen and evaluated. Given his confusion and recent history of UTI, we will check labs including CBC, CMP and CRP as well as troponin. We will check chest x-ray and EKG. I have ordered cath UA to obtain urine sample for urinalysis with microscopy if indicated. Normal saline 500 mL bolus ordered. Anticipate insulin order. 1135: Patient resting peacefully. I have talked with the daughter regarding patient's CODE STATUS. She is his DURABLE [employer]OWER OF [employer] FILLER for medical. Right now he is listed as full code but she would not want heroic measures and this could be further discussed if he were to rapidly decline. Monitor patient. 1215: Repeat normal saline 500 mL bolus pending UA. We are waiting for him to urinate as we are unable to do cath sample earlier. 1320: He still has not urinated and has had 1 L of fluid. I ended up doing straight cath as he has likely BPH and was a difficult catheterization. We were able to send urine for evaluation now. Patient does have yeast infection in the groin area and some irritation about the glans of the penis as well. This was cleaned by nursing. 1343: UA does not show anything significant other than glucose which is expected due to his high blood sugar. His blood sugars improved now after insulin given earlier. He is doing better after the total of 1 L of normal saline. There is no admission criteria currently. I did discuss with the daughter regarding the fungal infection of the groin. He has nystatin powder but just does not use it. I did instruct on use. I have follow-up with Dr. Mauro on 30 September. I will send a copy of the note to her. He may need to be seen before that. He is approaching the limit for capability at assisted living and this was discussed with the daughter who agrees. Currently he is living there with his and that we will continue but she understands that he may begin to exceed the level of capability there. Otherwise no other acute findings or concerns here. Discharged back to assisted living with return precautions. Daughter to take him home. She verbalized understanding of instructions and agreement with plan. Diagnostic Imaging Diagonstic Imaging: Xray Plain Films/CT/US/NM/MRI: chest Comments [facility], [place] NAME: ROGELIO SALCIDO [facility] REC#: [id number] PT STATUS: REG ER : 1940 PHYSICIAN: SOFI CORADO MD ADMIT DATE: 09/02/22/ER Draft Date of Exam:09/02/22 CHEST 1 VIEW, AP/PA ONLY Clinical indication: Patient weakness and high blood sugar. EXAM: Portable chest x-ray upright view. COMPARISON: Chest x-ray dated 10/09/2018. FINDINGS: Lungs/pleura: There is mild bibasilar atelectasis. There is no definite lung infiltrate. There is no pneumothorax. There is no pleural effusion. Mediastinum: Unremarkable. Pulmonary vasculature: Unremarkable. Heart: Unremarkable. Bones/extrathoracic soft tissue: There are degenerative spurs involving the thoracic spine. IMPRESSION: There is mild bibasilar atelectasis. There is no radiographic evidence of acute cardiopulmonary process. Dictated on workstation # [id number] Dict: 09/02/22 1112 Trans: 09/02/22 1129 [id number] Interpreted by: OLEGARIO ZAMORA MD Electronically signed by: Diagonstic Imaging: CT Plain Films/CT/US/NM/MRI: head Comments [facility] [place], [place] NAME: ROGELIO SALCIDO [facility] REC#: [id number] PT STATUS: REG ER : 1940 PHYSICIAN: SOFI CORADO MD ADMIT DATE: 09/02/22/ER Draft Date of Exam:09/02/22 CT HEAD WO CLINICAL INDICATION: Patient is status post fall with weakness. Patient with confusion. EXAM: Axial CT scan of the brain without IV contrast with coronal and sagittal reformatted images. Auto Exposure Controls were utilized during the CT exam to meet ALARA standards for radiation dose reduction. COMPARISON: MRI of the brain without contrast dated 09/15/2021. FINDINGS: There is no evidence of acute cerebral infarct, intracranial hemorrhage, or gross mass effect. There is diffuse brain parenchymal volume loss. There is subtle chronic small vessel ischemic disease again seen. There is normal coppola-white matter distinction. There is no significant midline shift or herniation. There is no evidence of hydrocephalus. The basal cisterns are unremarkable. The skull, extracranial soft tissue, and orbits are unremarkable. There is bcrjmuiq-vu-xzyjf amount of mucosal thickening involving left maxillary sinus. There is mild mucosal thickening involving the ethmoid sinus, and right maxillary sinus. Temporal bones show no significant abnormality. IMPRESSION: 1: Stable appearance of the brain parenchyma with no interval acute intracranial process. 2: There is paranasal sinus disease. Dictated on workstation # [id number] Dict: 09/02/22 1200 Trans: 09/02/22 1215 [id number] Interpreted by: OLEGARIO ZAMORA MD Electronically signed by: Departure Impression Primary Impression: Dehydration Additional Impressions: Weakness Uncontrolled diabetes mellitus with hyperglycemia, with long-term current use of insulin Fungal infection of the groin Disposition: HOME, SELF-CARE Condition: Stable Departure-Patient Inst. Decision time for Depature: 13:45 Referrals: ROGELIO MAYES MD (PCP/Family) Primary Care Physician Patient Instructions: Dehydration, Adult ED, High Blood Sugar, Adult ED, Fungal Skin Rash ED, Generalized Weakness (DC) Add. Discharge Instructions: All discharge instructions reviewed with patient and/or family. Voiced understanding. Drink plenty of Sugary fluids. Avoid sweets in your diet. You should maintain better control of your blood sugars. Diabetic diet as previously prescribed. Follow-up with Dr. Mauro for recheck and further evaluation. You have appointment on the that you should keep that you can consider moving that up. You may call the office for earlier appointment if available. Use nystatin powder to your groin area as prescribed. Keep that area clean and dry. Change briefs if they are wet. Return for worse pain, weakness, fever, vomiting, breathing problems or other concerns as needed. Copy Copies To 1: SUMIT MAURO MD, TIMOTHY D MD Sep 02, 2022 10:50
[2022-09-02] MEDS ORDERED: NS IV 500 ML 500 ML IV ONE ×2 (11:00→12:15)
[2022-09-02 11:12] LABS: BASOPHILS % (AUTO) 0 % (0-10); EOSINOPHILS # (AUTO) 0.1 10^3/uL (0.0-0.3); EOSINOPHILS % (AUTO) 1 % (0-10); HEMATOCRIT 33 % (40-54); HEMOGLOBIN 11.5 g/dL (13.3-17.7); LYMPHOCYTES # (AUTO) 1.5 10^3/uL (1.0-4.0); LYMPHOCYTES % (AUTO) 11 % (12-44); MEAN CORPUSCULAR HEMOGLOBIN 29 pg (25-34); MEAN CORPUSCULAR HGB CONC 35 g/dL (32-36); MEAN CORPUSCULAR VOLUME 85 fL (80-99); MEAN PLATELET VOLUME 11.2 fL (9.0-12.2); MONOCYTES # (AUTO) 1.3 10^3/uL (0.0-1.0); MONOCYTES % (AUTO) 10 % (0-12); NEUTROPHILS # (AUTO) 10.2 10^3/uL (1.8-7.8); NEUTROPHILS % (AUTO) 78 % (42-75); PLATELET COUNT 153 10^3/uL (130-400); WHITE BLOOD COUNT 13.1 10^3/uL (4.3-11.0)
[2022-09-02 11:16] LABS: ALBUMIN 3.7 GM/DL (3.2-4.5); POTASSIUM 5.3 MMOL/L (3.6-5.0)
[2022-09-02 11:18] LABS: TOTAL PROTEIN 6.7 GM/DL (6.4-8.2)
[2022-09-02 11:20] LABS: BILIRUBIN,TOTAL 1.3 MG/DL (0.1-1.0)
[2022-09-02 11:22] LABS: CREATININE SERUM 1.97 MG/DL (0.60-1.30)
--- NOTE | 2022-09-02 11:29 | Diagnostic Imaging Report ---
Clinical indication: Patient weakness and high blood sugar. EXAM: Portable chest x-ray upright view. COMPARISON: Chest x-ray dated 10/09/2018. FINDINGS: Lungs/pleura: There is mild bibasilar atelectasis. There is no definite lung infiltrate. There is no pneumothorax. There is no pleural effusion. Mediastinum: Unremarkable. Pulmonary vasculature: Unremarkable. Heart: Unremarkable. Bones/extrathoracic soft tissue: There are degenerative spurs involving the thoracic spine. IMPRESSION: There is mild bibasilar atelectasis. There is no radiographic evidence of acute cardiopulmonary process. Dictated by: Dictated on workstation # [id number]
[2022-09-02] MEDS ORDERED: inSUlin (REGULAR) HUMAN 1 UNIT/0.01 ML (CHARGE PER UNIT) SC STA (11:31)
--- NOTE | 2022-09-02 12:15 | Diagnostic Imaging Report ---
CLINICAL INDICATION: Patient is status post fall with weakness. Patient with confusion. EXAM: Axial CT scan of the brain without IV contrast with coronal and sagittal reformatted images. Auto Exposure Controls were utilized during the CT exam to meet ALARA standards for radiation dose reduction. COMPARISON: MRI of the brain without contrast dated 09/15/2021. FINDINGS: There is no evidence of acute cerebral infarct, intracranial hemorrhage, or gross mass effect. There is diffuse brain parenchymal volume loss. There is subtle chronic small vessel ischemic disease again seen. There is normal coppola-white matter distinction. There is no significant midline shift or herniation. There is no evidence of hydrocephalus. The basal cisterns are unremarkable. The skull, extracranial soft tissue, and orbits are unremarkable. There is mvcxsqww-[id number]-[id number] amount of mucosal thickening involving left maxillary sinus. There is mild mucosal thickening involving the ethmoid sinus, and right maxillary sinus. Temporal bones show no significant abnormality. IMPRESSION: 1: Stable appearance of the brain parenchyma with no interval acute intracranial process. 2: There is paranasal sinus disease. Dictated by: Dictated on workstation # [id number]
[2022-09-02] MEDS ORDERED: LIDOCAINE UROJET 2% GEL 10 ML PKG ONE (13:03)
[2022-09-02 13:17] LABS: BILIRUBIN,URINE NEGATIVE (NEGATIVE); CLARITY,URINE CLEAR; COLOR,URINE YELLOW; GLUCOSE, URINE (UA) 3+ (NEGATIVE); KETONES,URINE NEGATIVE (NEGATIVE); LEUKOCYTE ESTERASE ,URINE NEGATIVE (NEGATIVE); NITRITE,URINE NEGATIVE (NEGATIVE); PROTEIN,URINE TRACE (NEGATIVE)
[2022-09-02 13:27] LABS: BACTERIA,URINE NEGATIVE /HPF; SQUAMOUS EPITHELIAL CELL,UR RARE /HPF
[2022-09-02 14:14] VITALS: BP 122/66
[2022-09-02] MEDS ORDERED: LIDOCAINE UROJET 2% GEL 10 ML PKG TOP ONE (14:15)
== END 2022-09-02 14:13 | disposition home or self-care (01) ==
LOC: EDUNIT# 10:25 → ER 10:26
DX: E11.65 Type 2 diabetes mellitus with hyperglycemia (principal); E86.0 Dehydration; B35.6 Tinea cruris; Z79.4 Long term (current) use of insulin
CPT/HCPCS: 36415; 51701; 70450; 71045; 80053; 81000; 82947; 84484; 85025; 86141; 93041

== ENCOUNTER 2022-09-02 20:41 | Emergency (ER) | payer MEDICARE, OTHER ==
[~2022-09-02] VITALS: Ht 170.2 cm; Wt 77.1 kg
--- NOTE | 2022-09-02 21:48 | ED General ---
General Chief Complaint: General Problems/Pain Stated Complaint: MULTIPLE FALLS Nursing Triage Note: PT TO RM 1 VIA [facility] FROM [facility] W REPORTS OF MULTIPLE FALLS, WEAKNESS, FEVER, AND IRREGULAR HR. EMS ADVISES NURSING STAFF AT [facility] ADVISED PT DID NOT HIT HEAD. PT ALERT, NOT ORIENTED D/T DEMENTIA. History of Present Illness Date Seen by Provider: Sep 02, 2022 Time Seen by Provider: 21:20 Initial Comments 81 year old male from [facility], was evaluated in this ED earlier today. He lives in Assisted Living with his . Brought via EMS for fall tonight, no head injury or LOC. Patient has dementia, he denies any complaints of pain. Temp 100. Daughter checked Glucose via CGM: 176. Patient is requesting to return home to his . He enjoys sweets and they have difficulty managing his diabetes. Timing/Duration: 1 Hour Associated Systoms: Denies Symptoms Allergies and Home Medications Allergies Coded Allergies: codeine (Verified Allergy, Unknown, 03/22/17) epinephrine (Verified Allergy, Unknown, 03/22/17) Patient Home Medication List Home Medication List Reviewed: Yes Aspirin (Aspirin EC) 81 Mg Tablet.dr, 81 MG PO HS, (Reported) Entered as Reported by: VLADIMIR MCNAMARA on 10/10/18 1200 Cefdinir (Cefdinir) 300 Mg Capsule, 300 MG PO BID Prescribed by: TIMMY KELLY on 10/12/18 113 Folic Acid (Folic Acid) 0.8 Mg Tablet, 0.8 MG PO MoWeFr, (Reported) Entered as Reported by: VLADIMIR MCNAMARA on 10/10/18 1200 Glimepiride (Glimepiride) 4 Mg Tablet, 4 MG PO BID, (Reported) Entered as Reported by: GABRIELA JACOBS on 03/22/17 1825 Guaifenesin (Mucinex) 600 Mg Tab.er.12h, 600 MG PO BID Prescribed by: TIMMY KELLY on 10/12/18 1137 Hydrocodone/Chlorphen P-Stirex (Hydrocodone-Chlorphen ER Susp) 473 Ml Brandy.er.12h, 5 ML PO Q12HR Prescribed by: TIMMY KELLY on 10/12/18 1137 Insulin Determir (Levemir) 1,000 Units/10 Ml Soln, 30 UNIT SQ HS Prescribed by: TIMMY KELLY on 10/12/18 113 Ipratropium/Albuterol Sulfate (Iprat-Albut 0.5-3(2.5) mg/3 ml) 3 Ml Ampul.neb, 3 ML INH RTTID Prescribed by: TIMMY KELLY on 10/12/181136 Levothyroxine Sodium (Levothyroxine Sodium) 150 Mcg Tablet, 150 MCG PO DAILY, (Reported) Entered as Reported by: GABRIELA JACOBS on 03/22/171824 Lisinopril (Lisinopril) 20 Mg Tablet, 20 MG PO DAILY, (Reported) Entered as Reported by: GABRIELA JACOBS on 03/22/171824 Metformin HCl (Metformin HCl) 1,000 Mg Tablet, 1,000 MG PO BID, (Reported) Entered as Reported by: GABRIELA JACOBS on 03/22/171824 Omeprazole (Omeprazole) 20 Mg Capsule.dr, 20 MG PO DAILY, (Reported) Entered as Reported by: GABRIELA JACOBS on 03/22/171824 Prednisone (Prednisone) 10 Mg Tab.ds.pk, 10 MG PO BID Prescribed by: TIMMY KELLY on 10/12/181136 Saw [place] (Saw [place]) 160 Mg Capsule, 160 MG PO MoWeFr, (Reported) Entered as Reported by: VLADIMIR MCNAMARA on 10/10/18 1200 Review of Systems Review of Systems Constitutional: no symptoms reported, see HPI Genitourinary: see HPI, other (erythema to groin) Musculoskeletal: no symptoms reported, see HPI; No joint pain All Other Systems Reviewed Negative Unless Noted: Yes Past Iyhfjuo-Kmqhyk-Xnlmhq Hx Patient Social History Tobacco Use?: No Use of E-Cig and/or Vaping dev: No Substance use?: No Alcohol Use?: No Immunizations Up To Date PED Vaccines UTD: No Second COVID19 Vaccination [place]: PFITZER BOTH VACCINES Seasonal Allergies Seasonal Allergies: No Past Medical History Surgeries: Yes Adenoidectomy, Gallbladder, Orthopedic, Thyroidectomy, Tonsillectomy Respiratory: No Cardiac: Yes Hypertension Neurological: No Sexually Transmitted Disease: No HIV/AIDS: No Genitourinary: No Gastrointestinal: Yes Gastroesophageal Reflux Musculoskeletal: No Endocrine: Yes Diabetes, Insulin dep, Hypothyroidsim HEENT: No Cancer: No Psychosocial: No Integumentary: Yes Blood Disorders: No Family Medical History Reviewed Nursing Family Hx Patient reports no known family medical history. No Pertinent Family Hx Physical Exam Vital Signs Vital Signs - First Documented 09/02/22 20:43 Temp 37.8 Pulse 76 Resp 20 B/P (MAP) 124/64 (84) Pulse Ox 95 O2 Delivery Room Air Capillary Refill : Less Than 3 Seconds Height, Weight, BMI Height: 5'9.00" Weight: 189lbs. 8.0oz. 85.104583ty; 26.00 BMI Method:Stated General Appearance: No Apparent Distress, WD/WN Respiratory: Chest Non Tender, Lungs Clear, Normal Breath Sounds Cardiovascular: Regular Rate, Rhythm, Normal Peripheral Pulses Gastrointestinal: Normal Bowel Sounds, Non Tender, Soft Extremity: Normal Capillary Refill, Normal Inspection, Normal Range of Motion, Non Tender, Pedal Edema (1+) Neurologic/Psychiatric: Alert, Normal Mood/Affect (cooperative, answers some questions. Oriented to person but not place or time. ) Skin: Normal Color, Warm/Dry Progress/Results/Core Measures Suspected Sepsis SIRS Temperature: Pulse: 76 Respiratory Rate: 20 Laboratory Tests 09/02/22 21:47: White Blood Count 10.7 Blood Pressure 124 /64 Mean: 84 Laboratory Tests 09/02/22 21:47: Creatinine 1.58H, Platelet Count 131, Total Bilirubin 1.3H Results/Orders Lab Results Laboratory Tests Test 09/02/22 21:45 09/02/22 21:47 Range/Units Influenza Type A (RT-PCR) Not Detected Not Detecte Influenza Type B (RT-PCR) Not Detected Not Detecte SARS-CoV-2 RNA (RT-PCR) Not Detected Not Detecte White Blood Count 10.7 4.3-11.0 10^3/uL Red Blood Count 3.61 L 4.30-5.52 10^6/uL Hemoglobin 10.5 L 13.3-17.7 g/dL Hematocrit 30 L 40-54 % Mean Corpuscular Volume 84 80-99 fL Mean Corpuscular Hemoglobin 29 25-34 pg Mean Corpuscular Hemoglobin Concent 35 32-36 g/dL Red Cell Distribution Width 12.8 10.0-14.5 % Platelet Count 131 130-400 10^3/uL Mean Platelet Volume 10.6 9.0-12.2 fL Immature Granulocyte % (Auto) 0 % Neutrophils (%) (Auto) 72 42-75 % Lymphocytes (%) (Auto) 15 12-44 % Monocytes (%) (Auto) 12 0-12 % Eosinophils (%) (Auto) 1 0-10 % Basophils (%) (Auto) 0 0-10 % Neutrophils # (Auto) 7.7 1.8-7.8 10^3/uL Lymphocytes # (Auto) 1.6 1.0-4.0 10^3/uL Monocytes # (Auto) 1.2 H 0.0-1.0 10^3/uL Eosinophils # (Auto) 0.1 0.0-0.3 10^3/uL Basophils # (Auto) 0.0 0.0-0.1 10^3/uL Immature Granulocyte # (Auto) 0.0 0.0-0.1 10^3/uL Sodium Level 136 135-145 MMOL/L Potassium Level 4.8 3.6-5.0 MMOL/L Chloride Level 103 98-107 MMOL/L Carbon Dioxide Level 23 21-32 MMOL/L Anion Gap 10 5-14 MMOL/L Blood Urea Nitrogen 30 H 7-18 MG/DL Creatinine 1.58 H 0.60-1.30 MG/DL Estimat Glomerular Filtration Rate 43 BUN/Creatinine Ratio 19 Glucose Level 170 H 70-105 MG/DL Calcium Level 8.7 8.5-10.1 MG/DL Corrected Calcium 9.1 8.5-10.1 MG/DL Total Bilirubin 1.3 H 0.1-1.0 MG/DL Aspartate Amino Transf (AST/SGOT) 15 5-34 U/L Alanine Aminotransferase (ALT/SGPT) 14 0-55 U/L Alkaline Phosphatase 83 40-136 U/L Total Protein 6.3 L 6.4-8.2 GM/DL Albumin 3.5 3.2-4.5 GM/DL My Orders Orders - ROMELIADEVORA [employer]TER Accucheck Stat ONCE (09/02/22 21:27) Cbc With Automated Diff (09/02/22 21:42) Comprehensive Metabolic Panel (09/02/22 21:42) Covid 19 Inhouse Test (09/02/22 21:42) Influenza A And B By Pcr (09/02/22 21:42) Vital Signs/I&O 09/02/22 09/02/22 20:43 22:38 Temp 37.8 37.4 Pulse 76 76 Resp 20 16 B/P (MAP) 124/64 (84) 116/68 Pulse Ox 95 97 O2 Delivery Room Air Room Air Capillary Refill : Less Than 3 Seconds Blood Pressure Mean: 84 Point of Care Testing Finger Stick Blood Glucose: 176 Blood Glucose Action Taken: PER HOME DEVICE Progress Note : Time: 21:20 Progress Note patient assessed, discussed patient with daughter. She wants additional labs and work up, as she "feels there is something being missed." Discussed variations in dementia and that some patients have more progressive decline. Will check CBC, CMP, COVID and Flu. Reviewed notes from visit earlier today. 2215 labs all improved from earlier today. Concern that his dementia is progressing and he may need supervisor intermediates care placement for more assistance, discussed this with his daughter. Discharge instructions and return precautions reviewed with daughter. Departure Impression Primary Impression: Dementia Qualified Codes: F03.B0 - Unspecified dementia, moderate, without behavioral disturbance, psychotic disturbance, mood disturbance, and anxiety Additional Impressions: Fall Qualified Codes: W19.XXXA - Unspecified fall, initial encounter Diabetes Qualified Codes: E11.9 - Type 2 diabetes mellitus without complications; Z79.4 - shelter (current) use of insulin Disposition: HOME, SELF-CARE Condition: Stable Departure-Patient Inst. Decision time for Depature: 22:10 Referrals: SUMIT COCHRAN MD (PCP/Family) Primary Care Physician Patient Instructions: Dementia (DC) Add. Discharge Instructions: Continue all medications at Assisted Living. Limit high sugar foods and drinks. Follow up with Primary Care for further concerns. Consider need for Custodial Care for more direct patient care, instead of Assisted Living. Return to Emergency Dept for new, urgent health care needs. All discharge instructions reviewed with patient and/or family. Voiced understanding. Copy Copies To 1: SUMIT COCHRAN MD, AMY ARNP Sep 02, 2022 21:48
[2022-09-02 21:57] LABS: BASOPHILS % (AUTO) 0 % (0-10); EOSINOPHILS # (AUTO) 0.1 10^3/uL (0.0-0.3); EOSINOPHILS % (AUTO) 1 % (0-10); HEMATOCRIT 30 % (40-54); HEMOGLOBIN 10.5 g/dL (13.3-17.7); LYMPHOCYTES # (AUTO) 1.6 10^3/uL (1.0-4.0); LYMPHOCYTES % (AUTO) 15 % (12-44); MEAN CORPUSCULAR HEMOGLOBIN 29 pg (25-34); MEAN CORPUSCULAR HGB CONC 35 g/dL (32-36); MEAN CORPUSCULAR VOLUME 84 fL (80-99); MEAN PLATELET VOLUME 10.6 fL (9.0-12.2); MONOCYTES # (AUTO) 1.2 10^3/uL (0.0-1.0); MONOCYTES % (AUTO) 12 % (0-12); NEUTROPHILS # (AUTO) 7.7 10^3/uL (1.8-7.8); NEUTROPHILS % (AUTO) 72 % (42-75); PLATELET COUNT 131 10^3/uL (130-400); WHITE BLOOD COUNT 10.7 10^3/uL (4.3-11.0)
[2022-09-02 22:13] LABS: ALBUMIN 3.5 GM/DL (3.2-4.5); POTASSIUM 4.8 MMOL/L (3.6-5.0)
[2022-09-02 22:14] LABS: CALCIUM 8.7 MG/DL (8.5-10.1)
[2022-09-02 22:15] LABS: TOTAL PROTEIN 6.3 GM/DL (6.4-8.2)
[2022-09-02 22:17] LABS: BILIRUBIN,TOTAL 1.3 MG/DL (0.1-1.0)
[2022-09-02 22:19] LABS: CREATININE SERUM 1.58 MG/DL (0.60-1.30)
[2022-09-02 22:38] VITALS: BP 116/68
== END 2022-09-02 22:43 | disposition home or self-care (01) ==
LOC: EDUNIT# 20:41 → ER 20:43
DX: F03.90 Unspecified dementia, unspecified severity, without behavioral disturbance, psychotic disturbance, mood disturbance, and anxiety (principal); E11.9 Type 2 diabetes mellitus without complications; Z20.822 Contact with and (suspected) exposure to COVID-19; Z79.4 Long term (current) use of insulin
CPT/HCPCS: 36415; 80053; 85025; 87636

== ENCOUNTER 2022-11-11 17:11 | Observation (INO) | payer MEDICARE, OTHER ==
[~2022-11-11] VITALS: Ht 183 cm; Wt 80.3 kg
[2022-11-11] MEDS ORDERED: NS IV 1000 ML 1,000 ML IV STA (17:22)
[2022-11-11 17:29] LABS: BASOPHILS % (AUTO) 0 % (0-10); EOSINOPHILS # (AUTO) 0.1 10^3/uL (0.0-0.3); EOSINOPHILS % (AUTO) 1 % (0-10); HEMATOCRIT 37 % (40-54); HEMOGLOBIN 12.8 g/dL (13.3-17.7); LYMPHOCYTES # (AUTO) 0.6 10^3/uL (1.0-4.0); LYMPHOCYTES % (AUTO) 4 % (12-44); MEAN CORPUSCULAR HEMOGLOBIN 29 pg (25-34); MEAN CORPUSCULAR HGB CONC 35 g/dL (32-36); MEAN CORPUSCULAR VOLUME 85 fL (80-99); MEAN PLATELET VOLUME 10.9 fL (9.0-12.2); MONOCYTES # (AUTO) 0.7 10^3/uL (0.0-1.0); MONOCYTES % (AUTO) 5 % (0-12); NEUTROPHILS # (AUTO) 12.2 10^3/uL (1.8-7.8); NEUTROPHILS % (AUTO) 89 % (42-75); PLATELET COUNT 163 10^3/uL (130-400); WHITE BLOOD COUNT 13.7 10^3/uL (4.3-11.0)
[2022-11-11] MEDS ORDERED: ONDANSETRON 4 MG/2 ML (SDV) Z0FRAN IVP ONE (17:30)
--- NOTE | 2022-11-11 17:32 | ED GI ---
General Chief Complaint: Abdominal/GI Problems Stated Complaint: N/V Nursing Triage Note: PT TO RM 3 BY [facility] WITH CC OF [place], STARTED AFTER LUNCH. Source of Information: Patient Exam Limitations: Other (Dementia dementia) History of Present Illness Date Seen by Provider: Nov 11, 2022 Time Seen by Provider: 17:29 Initial Comments Patient is a 82-year-old male with a history of dementia, diabetes who was brought to the ED by EMS from [facility] for abdominal pain and vomiting. Patient states around lunchtime he ate started feeling sick started having 3-4 episodes of vomiting. Report vomiting chunks of food and then became more bilious. Started having some abdominal discomfort but that has improved. States he feels weak and fatigued. He is here with his who has similar symptoms as well. Several residents with similar GI complaints. States he has been urinating. Denies chest pain, cough, shortness of breath, fever, headache, dizziness, visual changes, diarrhea. History of esophageal stricture with stretching in the past. Patient does have dementia and forgetful. across the room was providing most of the history Allergies and Home Medications Allergies Coded Allergies: codeine (Verified Allergy, Unknown, 03/22/17) epinephrine (Verified Allergy, Unknown, 03/22/17) Patient Home Medication List Home Medication List Reviewed: Yes Aspirin (Aspirin EC) 81 Mg Tablet.dr, 81 MG PO DAILY, (Reported) Entered as Reported by: FOZIA KHAN on 11/12/221319 Last Action: Reviewed Donepezil HCl (Donepezil HCl) 5 Mg Tablet, 5 MG PO HS, (Reported) Entered as Reported by: FOZIA KHAN on 11/12/221319 Last Action: Reviewed Glucagon (Gvoke Hypopen 2-Pack) 1 Mg/0.2 Ml Auto.injct, 1 MG IM UD PRN for HYPOGLYCEMIA, (Reported) Entered as Reported by: FOZIA KHAN on 11/12/221319 Last Action: Reviewed Insulin Aspart (Novolog Flexpen) 100 Unit/Ml (3 Ml) Solution, UNITS SC Q4H PRN for HYPERGLYCEMIA, (Reported) Entered as Reported by: FOZIA KHAN on 11/12/221319 Last Action: Reviewed Insulin Aspart (Novolog) 100 Unit/Ml Susp, UNIT SQ TID, (Reported) Entered as Reported by: FOZIA KHAN on 11/12/221319 Last Action: Reviewed Insulin Aspart (Novolog) 100 Unit/Ml Susp, 5 UNIT SQ TID, (Reported) Entered as Reported by: FOZIA KHAN on 11/12/221319 Last Action: Reviewed Insulin Detemir (Levemir Flexpen) 100 Unit/Ml (3 Ml) Insuln.pen, 7 UNIT SQ HS, (Reported) Entered as Reported by: FOZIA KHAN on 11/12/221319 Last Action: Reviewed Levothyroxine Sodium (Levothyroxine Sodium) 137 Mcg Tablet, 137 MCG PO DAILY, (Reported) Entered as Reported by: FOZIA KHAN on 11/12/221319 Last Action: Reviewed Lorazepam (Ativan) 0.5 Mg Tablet, 0.25 MG PO BID PRN for ANXIETY, (Reported) Entered as Reported by: FOZIA KHAN on 11/12/221319 Last Action: Reviewed Metoprolol Succinate (Metoprolol Succinate) 25 Mg Tab.er.24h, 25 MG PO DAILY, (Reported) Entered as Reported by: FOZIA KHAN on 11/12/221319 Last Action: Reviewed Multivitamin (Multivitamin) 1 Each Tablet, 1 EACH PO DAILY, (Reported) Entered as Reported by: FOZIA KHAN on 11/12/221319 Last Action: Reviewed Omeprazole (Omeprazole) 20 Mg Capsule.dr, 20 MG PO DAILY, (Reported) Entered as Reported by: GABRIELA JACOBS on 03/22/17 1825 Last Action: Reviewed Ondansetron (Ondansetron Odt) 4 Mg Tab.rapdis, 4 MG SL Q4H PRN for NAUSEA/VOMIT ING Prescribed by: SUMIT COCHRAN on 11/12/221527 Pantoprazole Sodium (Pantoprazole Sodium) 40 Mg Tablet.dr, 40 MG PO DAILY Prescribed by: SUMIT COCHRAN on 11/12/221527 Sertraline HCl (Sertraline HCl) 100 Mg Tablet, 100 MG PO DAILY, (Reported) Entered as Reported by: FOZIA KHAN on 11/12/221319 Last Action: Reviewed Discontinued Medications Aspirin (Aspirin EC) 81 Mg Tablet.dr, 81 MG PO HS, (Reported) Discontinued Reason: No Longer Taking Entered as Reported by: VLADIMIR MCNAMARA on 10/10/18 1200 Last Action: Discontinued Cefdinir (Cefdinir) 300 Mg Capsule, 300 MG PO BID Discontinued Reason: No Longer Taking Prescribed by: TIMMY KELLY on 10/12/181136 Last Action: Discontinued Folic Acid (Folic Acid) 0.8 Mg Tablet, 0.8 MG PO MoWeFr, (Reported) Discontinued Reason: No Longer Taking Entered as Reported by: VLADIMIR MCNAMARA on 10/10/181199 Last Action: Discontinued Glimepiride (Glimepiride) 4 Mg Tablet, 4 MG PO BID, (Reported) Discontinued Reason: No Longer Taking Entered as Reported by: GABRIELA JACOBS on 03/22/171824 Last Action: Discontinued Guaifenesin (Mucinex) 600 Mg Tab.er.12h, 600 MG PO BID Discontinued Reason: No Longer Taking Prescribed by: TIMMY KELLY on 10/12/181136 Last Action: Discontinued Hydrocodone/Chlorphen P-Stirex (Hydrocodone-Chlorphen ER Susp) 473 Ml Brandy.er.12h, 5 ML PO Q12HR Discontinued Reason: No Longer Taking Prescribed by: TIMMY KELLY on 10/12/181136 Last Action: Discontinued Insulin Determir (Levemir) 1,000 Units/10 Ml Soln, 30 UNIT SQ HS Discontinued Reason: No Longer Taking Prescribed by: TIMMY KELLY on 10/12/181136 Last Action: Discontinued Ipratropium/Albuterol Sulfate (Iprat-Albut 0.5-3(2.5) mg/3 ml) 3 Ml Ampul.neb, 3 ML INH RTTID Discontinued Reason: No Longer Taking Prescribed by: TIMMY KELLY on 10/12/181136 Last Action: Discontinued Levothyroxine Sodium (Levothyroxine Sodium) 150 Mcg Tablet, 150 MCG PO DAILY, (Reported) Discontinued Reason: No Longer Taking Entered as Reported by: GABRIELA JACOBS on 03/22/171824 Last Action: Discontinued Lisinopril (Lisinopril) 20 Mg Tablet, 20 MG PO DAILY, (Reported) Discontinued Reason: No Longer Taking Entered as Reported by: GABRIELA JACOBS on 03/22/171824 Last Action: Discontinued Metformin HCl (Metformin HCl) 1,000 Mg Tablet, 1,000 MG PO BID, (Reported) Discontinued Reason: No Longer Taking Entered as Reported by: GABRIELA JACOBS on 03/22/17 1825 Last Action: Discontinued Prednisone (Prednisone) 10 Mg Tab.ds.pk, 10 MG PO BID Discontinued Reason: No Longer Taking Prescribed by: TIMMY KELLY on 10/12/18 1137 Last Action: Discontinued Saw [place] (Saw [place]) 160 Mg Capsule, 160 MG PO MoWeFr, (Reported) Discontinued Reason: No Longer Taking Entered as Reported by: VLADIMIR MCNAMARA on 10/10/18 1200 Last Action: Discontinued Review of Systems Review of Systems Constitutional: No chills, No diaphoresis EENTM: No Eye Pain, No Mouth Pain, No Mouth Swelling Respiratory: Denies Cough, Denies Orthopnea, Denies Shortness of Air Gastrointestinal: Abdominal Pain; Denies Diarrhea; Nausea, Vomiting Genitourinary: Denies Burning, Denies Discharge, Denies Drainage, Denies Frequency Musculoskeletal: No back pain, No joint pain Skin: No change in color, No change in hair/nails Psychiatric/Neurological: Denies Anxiety All Other Systems Reviewed Negative Unless Noted: Yes Past Fzxhoww-Coszyg-Iplplm Hx Immunizations Up To Date PED Vaccines UTD: No First/Initial COVID19 Vaccinat: PFITZER BOTH VACCINES Second COVID19 Vaccination [place]: PFITZER BOTH VACCINES Third COVID19 Vaccination Date: PFITZER BOTH VACCINES Seasonal Allergies Seasonal Allergies: No Past Medical History Surgery/Hospitalization HX: TYPE II DIABETIC, HTN, DEMENTIA Surgeries: Yes Adenoidectomy, Gallbladder, Orthopedic, Thyroidectomy, Tonsillectomy Respiratory: No Cardiac: Yes Hypertension Neurological: No Sexually Transmitted Disease: No HIV/AIDS: No Genitourinary: No Gastrointestinal: Yes Gastroesophageal Reflux Musculoskeletal: No Endocrine: Yes Diabetes, Insulin dep, Hypothyroidsim HEENT: No Cancer: No Psychosocial: No Integumentary: Yes Blood Disorders: No Family Medical History Patient reports no known family medical history. No Pertinent Family Hx Physical Exam Vital Signs Vital Signs - First Documented 11/11/22 17:15 Temp 37.0 Resp 20 B/P (MAP) 154/83 (106) O2 Delivery Room Air Capillary Refill : Less Than 3 Seconds Height/Weight/BMI Height: 5'9.00" Weight: 189lbs. 8.0oz. 85.392293hj; 26.00 BMI Method:Stated General Appearance: WD/WN, no apparent distress HEENT: PERRL/EOMI, normal ENT inspection, TMs normal, pharynx normal Neck: non-tender, full range of motion, supple Respiratory: chest non-tender, lungs clear, normal breath sounds, no respiratory distress Cardiovascular: regular rate, rhythm, no edema, no gallop, no JVD Gastrointestinal: normal bowel sounds, non tender, soft, no organomegaly Extremities: normal range of motion, non-tender, normal inspection, no pedal edema Back: normal inspection, no CVA tenderness Neurologic/Psychiatric: supervisor scrap preparation II-XII nml as tested, no motor/sensory deficits, alert, normal mood/affect, oriented x 3 Skin: normal color Progress/Results/Core Measures Results/Orders Lab Results Laboratory Tests Test 11/11/22 17:22 Range/Units White Blood Count 13.7 H 4.3-11.0 10^3/uL Red Blood Count 4.36 4.30-5.52 10^6/uL Hemoglobin 12.8 L 13.3-17.7 g/dL Hematocrit 37 L 40-54 % Mean Corpuscular Volume 85 80-99 fL Mean Corpuscular Hemoglobin 29 25-34 pg Mean Corpuscular Hemoglobin Concent 35 32-36 g/dL Red Cell Distribution Width 13.0 10.0-14.5 % Platelet Count 163 130-400 10^3/uL Mean Platelet Volume 10.9 9.0-12.2 fL Immature Granulocyte % (Auto) 0 % Neutrophils (%) (Auto) 89 H 42-75 % Lymphocytes (%) (Auto) 4 L 12-44 % Monocytes (%) (Auto) 5 0-12 % Eosinophils (%) (Auto) 1 0-10 % Basophils (%) (Auto) 0 0-10 % Neutrophils # (Auto) 12.2 H 1.8-7.8 10^3/uL Lymphocytes # (Auto) 0.6 L 1.0-4.0 10^3/uL Monocytes # (Auto) 0.7 0.0-1.0 10^3/uL Eosinophils # (Auto) 0.1 0.0-0.3 10^3/uL Basophils # (Auto) 0.0 0.0-0.1 10^3/uL Immature Granulocyte # (Auto) 0.0 0.0-0.1 10^3/uL Neutrophils % (Manual) 92 % Lymphocytes % (Manual) 3 % Monocytes % (Manual) 5 % Blood Morphology Comment NORMAL Sodium Level 138 135-145 MMOL/L Potassium Level 4.9 3.6-5.0 MMOL/L Chloride Level 102 98-107 MMOL/L Carbon Dioxide Level 24 21-32 MMOL/L Anion Gap 12 5-14 MMOL/L Blood Urea Nitrogen 30 H 7-18 MG/DL Creatinine 1.84 H 0.60-1.30 MG/DL Estimat Glomerular Filtration Rate 36 BUN/Creatinine Ratio 16 Glucose Level 220 H 70-105 MG/DL Calcium Level 9.4 8.5-10.1 MG/DL Corrected Calcium 9.2 8.5-10.1 MG/DL Total Bilirubin 1.2 H 0.1-1.0 MG/DL Aspartate Amino Transf (AST/SGOT) 17 5-34 U/L Alanine Aminotransferase (ALT/SGPT) 16 0-55 U/L Alkaline Phosphatase 119 40-136 U/L Total Protein 7.6 6.4-8.2 GM/DL Albumin 4.3 3.2-4.5 GM/DL Lipase 20 8-78 U/L My Orders Orders - DEISY MORRIS Cbc With Automated Diff (11/11/22 17:22) Comprehensive Metabolic Panel (11/11/22 17:22) Lipase (11/11/22 17:22) Ua Culture If Indicated (11/11/22 17:22) Ns Iv 1000 Ml (Sodium Chloride 0.9%) (11/11/22 17:22) Ondansetron Injection (Zofran Injectio (11/11/22 17:30) Manual Differential (11/11/22 17:22) Promethazine Injection (Phenergan Injec (11/11/22 18:15) Ns Iv 500 Ml (Sodium Chloride 0.9%) (11/11/22 19:30) Metoclopramide Injection (Reglan Injecti (11/11/22 20:00) Sucralfate Tablet (Carafate Tablet) (11/11/22 21:30) Metoclopramide Injection (Reglan Injecti (11/12/22 00:00) Ondansetron Injection (Zofran Injectio (11/11/22 21:30) Pantoprazole Injection (Protonix Injecti (11/11/22 21:30) Accucheck Q6hr Q6HR (11/11/22 21:51) Insulin Aspart (Novolog) (Novolog (Charg (11/12/22 06:00) Medications Given in ED Vital Signs/I&O 11/11/22 17:15 Temp 37.0 Resp 20 B/P (MAP) 154/83 (106) O2 Delivery Room Air 11/12/22 00:00 Intake Total 1500 ml Balance 1500 ml Blood Pressure Mean: 106 Departure Communication (PCP) Patient presents to ED with vomiting. Patient here with with similar symptoms. Several residents at [facility] with similar complaints. Patient without any abdominal tenderness. Does have a history of dementia. provided most of the history as she was in the same room. Patient with active vomiting on arrival. Was given Zofran in route by EMS. Patient continued vomiting here was given 4 mg of Zofran. Due to patient's current complaints CBC, CMP, lipase, urinalysis was ordered. Patient continued to vomit. Bile appearance. Patient was given dose of Phenergan with some improvement of the vomiting. CBC showed a white blood count of 13. Creatinine 1.84, GFR 36 chronic kidney disease. Normal liver enzyme. Reevaluation of the abdomen had no tenderness to palpate. Imaging was held secondary no abdominal pain or no tenderness to palpate. Patient denies of any chest pain, shortness of breath or cough. Patient was started on a liter of fluid. Patient vomited a third time and was given Reglan. Possible gastroparesis component. started dry heaving with a small episode of vomiting. Due to the continued intractable vomiting discussed patient with primary care physician Dr. COCHRAN. Recommend admission for IV antiemetics, IV fluids. She recommended Protonix twice daily, dose of Carafate. Provided schedule Reglan and Zofran. Patient continue having no abdominal tenderness. Was not able to urinate. Suspect viral as patient with similar symptoms. No active diarrhea. Gastritis with continued vomiting. Patient will be admitted for further evaluation. Vital signs stable. Impression Primary Impression: Intractable vomiting Disposition: ADMITTED INPATIENT Condition: Stable Admissions Decision to Admit Reason: Admit from ER (General) Decision to Admit/Date: Nov 11, 2022 Time/Decision to Admit Time: 21:20 Departure-Patient Inst. Referrals: SUMIT COCHRAN MD (PCP/Family) Primary Care Physician Scripts Ondansetron (Ondansetron Odt) 4 Mg Tab.rapdis 4 MG SL Q4H PRN for NAUSEA/VOMITING for 10 Days, #20 TAB Prov: SUMIT COCHRAN MD 11/12/22 Pantoprazole Sodium (Pantoprazole Sodium) 40 Mg Tablet.dr 40 MG PO DAILY for 15 Days, #15 TAB Prov: SUMIT COCHRAN MD 11/12/22 DEISY MORRIS Nov 11, 2022 17:32
[2022-11-11 17:50] LABS: ALBUMIN 4.3 GM/DL (3.2-4.5); POTASSIUM 4.9 MMOL/L (3.6-5.0)
[2022-11-11 17:51] LABS: CALCIUM 9.4 MG/DL (8.5-10.1)
[2022-11-11 17:53] LABS: TOTAL PROTEIN 7.6 GM/DL (6.4-8.2)
[2022-11-11 17:54] LABS: BILIRUBIN,TOTAL 1.2 MG/DL (0.1-1.0)
[2022-11-11 17:56] LABS: CREATININE SERUM 1.84 MG/DL (0.60-1.30)
[2022-11-11 18:02] LABS: LYMPHOCYTES % (MANUAL) 3 %; MONOCYTES % (MANUAL) 5 %; NEUTROPHILS % (MANUAL) 92 %; RBC MORPH NORMAL
[2022-11-11] MEDS ORDERED: PROMETHAZINE INJ 25 MG/ML (PHENERGAN) AMP IVP ONE (18:15)
[2022-11-11] MEDS ORDERED: NS IV 500 ML 500 ML IV STA (19:30)
[2022-11-11] MEDS ORDERED: METOCLOPRAMIDE INJ 10 MG/2 ML (REGLAN) IVP ONE (20:00)
[2022-11-11] MEDS ORDERED: SUCRALFATE 1 GM (CARAFATE) TAB PO ONE (21:30)
[2022-11-11] MEDS ORDERED: ONDANSETRON 4 MG/2 ML (SDV) Z0FRAN IVP PRN (21:30)
[2022-11-11] MEDS ORDERED: PANTOPRAZOLE 40 MG (PROTONIX) VIAL IV ONE (21:30)
[2022-11-11] MEDS: METOCLOPRAMIDE INJ 10 MG/2 ML (REGLAN) IVP SCH (23:02)
[2022-11-11] MEDS: NS IV 1000 ML 1,000 ML IV SCH (23:02)
[2022-11-11 23:12] VITALS: BP 95/50
[2022-11-12 03:11] VITALS: BP 91/55
[2022-11-12 04:31] VITALS: BP 105/52
[2022-11-12] MEDS: METOCLOPRAMIDE INJ 10 MG/2 ML (REGLAN) IVP SCH ×2 (05:38→10:49)
[2022-11-12] MEDS: inSUlin ASPART (NovoLOG) 1 UNIT/0.01 ML (CHARGE PER UNIT) SC SCH ×2 (05:39→10:49)
[2022-11-12 05:47] LABS: BASOPHILS % (AUTO) 1 % (0-10); EOSINOPHILS % (AUTO) 0 % (0-10); HEMATOCRIT 32 % (40-54); HEMOGLOBIN 10.6 g/dL (13.3-17.7); LYMPHOCYTES # (AUTO) 0.6 10^3/uL (1.0-4.0); LYMPHOCYTES % (AUTO) 7 % (12-44); MEAN CORPUSCULAR HEMOGLOBIN 29 pg (25-34); MEAN CORPUSCULAR HGB CONC 34 g/dL (32-36); MEAN CORPUSCULAR VOLUME 86 fL (80-99); MONOCYTES # (AUTO) 0.6 10^3/uL (0.0-1.0); MONOCYTES % (AUTO) 7 % (0-12); NEUTROPHILS # (AUTO) 7.4 10^3/uL (1.8-7.8); NEUTROPHILS % (AUTO) 85 % (42-75); PLATELET COUNT 136 10^3/uL (130-400); WHITE BLOOD COUNT 8.7 10^3/uL (4.3-11.0)
[2022-11-12 05:58] LABS: POTASSIUM 5.4 MMOL/L (3.6-5.0)
[2022-11-12 06:00] LABS: CALCIUM 8.4 MG/DL (8.5-10.1)
[2022-11-12 06:04] LABS: CREATININE SERUM 1.92 MG/DL (0.60-1.30)
[2022-11-12] MEDS: NS IV 1000 ML 1,000 ML IV SCH ×2 (06:28→14:46)
[2022-11-12 07:26] VITALS: BP 114/56
[2022-11-12] MEDS ORDERED: PANTOPRAZOLE 40 MG (PROTONIX) VIAL IV SCH (09:00)
[2022-11-12 11:37] VITALS: BP 127/72
[2022-11-12] MEDS ORDERED: MTP25TSR PO (13:20)
[2022-11-12] MEDS ORDERED: LEVO137T2 PO (13:20)
[2022-11-12] MEDS ORDERED: INSU100V16 SQ (13:20)
[2022-11-12] MEDS ORDERED: MULT-1136 PO (13:20)
[2022-11-12] MEDS ORDERED: INSU100I14 SC (13:20)
[2022-11-12] MEDS ORDERED: GLUC1AUT2 IM (13:20)
[2022-11-12] MEDS ORDERED: SERT-414 PO (13:20)
[2022-11-12] MEDS ORDERED: INSU100I88 SQ (13:20)
[2022-11-12] MEDS ORDERED: DONE5TAB30 PO (13:20)
[2022-11-12] MEDS ORDERED: ASPI-1238 PO (13:20)
[2022-11-12] MEDS ORDERED: LORA-404 PO (13:20)
--- NOTE | 2022-11-12 15:22 | Short Stay Summary ---
History of Present Illness History of Present Illness Date of Admission Nov 11, 2022 at 22:06 Date of Discharge Attending Physician Sumit Mauro MD Admitting Physician Admitting Physician: Sumit Mauro MD Attending Physician: Sumit Mauro MD Consult Allergies and Home Medications Allergies Coded Allergies: codeine (Verified Allergy, Unknown, 03/22/17) epinephrine (Verified Allergy, Unknown, 03/22/17) Patient Home Medication List Aspirin (Aspirin EC) 81 Mg Tablet.dr, 81 MG PO DAILY, (Reported) Entered as Reported by: FOZIA KHAN on 11/12/221319 Last Action: Reviewed Donepezil HCl (Donepezil HCl) 5 Mg Tablet, 5 MG PO HS, (Reported) Entered as Reported by: FOZIA KHAN on 11/12/221319 Last Action: Reviewed Glucagon (Gvoke Hypopen 2-Pack) 1 Mg/0.2 Ml Auto.injct, 1 MG IM UD PRN for HYPOGLYCEMIA, (Reported) Entered as Reported by: FOZIA KHAN on 11/12/221319 Last Action: Reviewed Insulin Aspart (Novolog Flexpen) 100 Unit/Ml (3 Ml) Solution, UNITS SC Q4H PRN for HYPERGLYCEMIA, (Reported) Entered as Reported by: FOZIA KHAN on 11/12/221319 Last Action: Reviewed Insulin Aspart (Novolog) 100 Unit/Ml Susp, UNIT SQ TID, (Reported) Entered as Reported by: FOZIA KHAN on 11/12/221319 Last Action: Reviewed Insulin Aspart (Novolog) 100 Unit/Ml Susp, 5 UNIT SQ TID, (Reported) Entered as Reported by: FOZIA KHAN on 11/12/221319 Last Action: Reviewed Insulin Detemir (Levemir Flexpen) 100 Unit/Ml (3 Ml) Insuln.pen, 7 UNIT SQ HS, (Reported) Entered as Reported by: FOZIA KHAN on 11/12/221319 Last Action: Reviewed Levothyroxine Sodium (Levothyroxine Sodium) 137 Mcg Tablet, 137 MCG PO DAILY, (Reported) Entered as Reported by: FOZIA KHAN on 11/12/221319 Last Action: Reviewed Lorazepam (Ativan) 0.5 Mg Tablet, 0.25 MG PO BID PRN for ANXIETY, (Reported) Entered as Reported by: FOZIA KHAN on 11/12/221319 Last Action: Reviewed Metoprolol Succinate (Metoprolol Succinate) 25 Mg Tab.er.24h, 25 MG PO DAILY, (Reported) Entered as Reported by: FOZIA KHAN on 11/12/221319 Last Action: Reviewed Multivitamin (Multivitamin) 1 Each Tablet, 1 EACH PO DAILY, (Reported) Entered as Reported by: FOZIA KHAN on 11/12/221319 Last Action: Reviewed Omeprazole (Omeprazole) 20 Mg Capsule.dr, 20 MG PO DAILY, (Reported) Entered as Reported by: GABRIELA JACOBS on 03/22/171824 Last Action: Reviewed Sertraline HCl (Sertraline HCl) 100 Mg Tablet, 100 MG PO DAILY, (Reported) Entered as Reported by: FOZIA KHAN on 11/12/221319 Last Action: Reviewed Discontinued Medications Aspirin (Aspirin EC) 81 Mg Tablet.dr, 81 MG PO HS, (Reported) Discontinued Reason: No Longer Taking Entered as Reported by: VLADIMIR MCNAMARA on 10/10/18 1200 Last Action: Discontinued Cefdinir (Cefdinir) 300 Mg Capsule, 300 MG PO BID Discontinued Reason: No Longer Taking Prescribed by: TIMMY KELLY on 10/12/181136 Last Action: Discontinued Folic Acid (Folic Acid) 0.8 Mg Tablet, 0.8 MG PO MoWeFr, (Reported) Discontinued Reason: No Longer Taking Entered as Reported by: VLADIMIR MCNAAMRA on 10/10/18 1200 Last Action: Discontinued Glimepiride (Glimepiride) 4 Mg Tablet, 4 MG PO BID, (Reported) Discontinued Reason: No Longer Taking Entered as Reported by: GABRIELA JACOBS on 03/22/171824 Last Action: Discontinued Guaifenesin (Mucinex) 600 Mg Tab.er.12h, 600 MG PO BID Discontinued Reason: No Longer Taking Prescribed by: TIMMY KELLY on 10/12/181136 Last Action: Discontinued Hydrocodone/Chlorphen P-Stirex (Hydrocodone-Chlorphen ER Susp) 473 Ml Brandy.er.12h, 5 ML PO Q12HR Discontinued Reason: No Longer Taking Prescribed by: TIMMY KELLY on 10/12/181136 Last Action: Discontinued Insulin Determir (Levemir) 1,000 Units/10 Ml Soln, 30 UNIT SQ HS Discontinued Reason: No Longer Taking Prescribed by: TIMMY KELLY on 10/12/181136 Last Action: Discontinued Ipratropium/Albuterol Sulfate (Iprat-Albut 0.5-3(2.5) mg/3 ml) 3 Ml Ampul.neb, 3 ML INH RTTID Discontinued Reason: No Longer Taking Prescribed by: TIMMY KELLY on 10/12/181136 Last Action: Discontinued Levothyroxine Sodium (Levothyroxine Sodium) 150 Mcg Tablet, 150 MCG PO DAILY, (Reported) Discontinued Reason: No Longer Taking Entered as Reported by: GABRIELA JACOBS on 03/22/171824 Last Action: Discontinued Lisinopril (Lisinopril) 20 Mg Tablet, 20 MG PO DAILY, (Reported) Discontinued Reason: No Longer Taking Entered as Reported by: GABRIELA JACOBS on 03/22/171824 Last Action: Discontinued Metformin HCl (Metformin HCl) 1,000 Mg Tablet, 1,000 MG PO BID, (Reported) Discontinued Reason: No Longer Taking Entered as Reported by: GABRIELA JACOBS on 03/22/171824 Last Action: Discontinued Prednisone (Prednisone) 10 Mg Tab.ds.pk, 10 MG PO BID Discontinued Reason: No Longer Taking Prescribed by: TIMMY KELLY on 10/12/181136 Last Action: Discontinued Saw Lopez (Saw Lopez) 160 Mg Capsule, 160 MG PO MoWeFr, (Reported) Discontinued Reason: No Longer Taking Entered as Reported by: VLADIMIR MCNAMARA on 10/10/18 1200 Last Action: Discontinued Past Nfgsbpi-Qdnhtl-Vpexrn Hx Patient Social History Alcohol Beverage of Choice: Wine Smoking Status: Unknown if Ever Smoked Recent Hopitalizations: No Have you traveled recently?: Unable to obtain Pt feels they are or have been: Unable to obtain Immunizations Up To Date Pediatric: No Date of Pneumonia Vaccine: Jun 05, 2018 Date of Influenza Vaccine: Jun 05, 2018 Seasonal Allergies Seasonal Allergies: No Surgeries Yes Adenoidectomy, Gallbladder, Orthopedic, Thyroidectomy, Tonsillectomy Respiratory No Cardiovascular Yes Hypertension Neurological No Reproductive System Sexually Transmitted Disease: No HIV/AIDS: No Genitourinary No Gastrointestinal Yes Gastroesophageal Reflux Musculoskeletal No Endocrine History of Endocrine Disorders: Yes Endocrine Disorders: Diabetes, Insulin dep, Hypothyroidsim HEENT History of HEENT Disorders: No Cancer No Psychosocial History of Psychiatric Problem: No Integumentary History of Skin or Integumenta: Yes Blood Transfusions History of Blood Disorders: No Family Medical History Significant Family History: No Pertinent Family Hx Family Hx: Patient reports no known family medical history. Physical Exam Vital Signs Vital Signs - First Documented 11/11/22 11/11/22 17:15 23:12 Temp 37.0 Pulse 93 Resp 20 B/P (MAP) 154/83 (106) Pulse Ox 93 O2 Delivery Room Air Capillary Refill : Less Than 3 Seconds Height, Weight, BMI Height: 5'9.00" Weight: 189lbs. 8.0oz. 85.878907kh; 23.97 BMI Method:Stated Short Stay Diagnosis Conclusion Labs Laboratory Tests 11/11/22 17:22: White Blood Count 13.7H, Red Blood Count 4.36, Hemoglobin 12.8L, Hematocrit 37L, Mean Corpuscular Volume 85, Mean Corpuscular Hemoglobin 29, Mean Corpuscular Hemoglobin Concent 35, Red Cell Distribution Width 13.0, Platelet Count 163, Mean Platelet Volume 10.9, Immature Granulocyte % (Auto) 0, Neutrophils (%) (Auto) 89H, Lymphocytes (%) (Auto) 4L, Monocytes (%) (Auto) 5, Eosinophils (%) (Auto) 1, Basophils (%) (Auto) 0, Neutrophils # (Auto) 12.2H, Lymphocytes # (Auto) 0.6L, Monocytes # (Auto) 0.7, Eosinophils # (Auto) 0.1, Basophils # (Auto) 0.0, Immature Granulocyte # (Auto) 0.0, Neutrophils % (Manual) 92, Lymphocytes % (Manual) 3, Monocytes % (Manual) 5, Blood Morphology Comment N ORMAL, Sodium Level 138, Potassium Level 4.9, Chloride Level 102, Carbon Dioxide Level 24, Anion Gap 12, Blood Urea Nitrogen 30H, Creatinine 1.84H, Estimat Glomerular Filtration Rate 36, BUN/Creatinine Ratio 16, Glucose Level 220H, Calcium Level 9.4, Corrected Calcium 9.2, Total Bilirubin 1.2H, Aspartate Amino Transf (AST/SGOT) 17, Alanine Aminotransferase (ALT/SGPT) 16, Alkaline Phosphatase 119, Total Protein 7.6, Albumin 4.3, Lipase 20 11/11/22 23:16: Glucometer 234H 11/12/22 05:32: Glucometer 275H 11/12/22 05:33: White Blood Count 8.7, Red Blood Count 3.68L, Hemoglobin 10.6L, Hematocrit 32L, Mean Corpuscular Volume 86, Mean Corpuscular Hemoglobin 29, Mean Corpuscular Hemoglobin Concent 34, Red Cell Distribution Width 13.2, Platelet Count 136, Mean Platelet Volume 11.0, Immature Granulocyte % (Auto) 0, Neutrophils (%) (Auto) 85H, Lymphocytes (%) (Auto) 7L, Monocytes (%) (Auto) 7, Eosinophils (%) (Auto) 0, Basophils (%) (Auto) 1, Neutrophils # (Auto) 7.4, Lymphocytes # (Auto) 0.6L, Monocytes # (Auto) 0.6, Eosinophils # (Auto) 0.0, Basophils # (Auto) 0.0, Immature Granulocyte # (Auto) 0.0, Sodium Level 138, Potassium Level 5.4H, Chloride Level 106, Carbon Dioxide Level 22, Anion Gap 10, Blood Urea Nitrogen 34H, Creatinine 1.92H, Estimat Glomerular Filtration Rate 34, BUN/Creatinine Ratio 18, Glucose Level 285H, Calcium Level 8.4L 11/12/22 11:53: Glucometer 265H SUMIT MAURO MD Nov 12, 2022 15:22
[2022-11-12] MEDS ORDERED: PANT40TA52 PO (15:28)
[2022-11-12] MEDS ORDERED: ONDA4TAB11 SL (15:28)
--- NOTE | 2022-11-12 15:30 | Discharge Inst-Simple/Standard ---
Discharge Inst-Standard Reconcile Patient Problems Problems Reviewed?: Yes Discharge Medications New, Converted or Re-Newed RX: Transmitted to Pharmacy Patient Instructions/Follow Up Plan of Care/Instructions/FU: call the office for a follow up appt in the next 2 weeks Activity as Tolerated: Yes Discharge Diet: ADA Diet Health Concerns: nausea due to gastrointestinal virus Return to The Hospital For: recurrent, uncontrolled nausea and emesis, chest pain, shortness of breath or other acute concerns that are lifethretening or emergent Medication List: Active Scripts Active Ondansetron Odt (Ondansetron) 4 Mg Tab.rapdis 4 Mg SL Q4H PRN 10 Days Pantoprazole Sodium 40 Mg Tablet.dr 40 Mg PO DAILY 15 Days Reported Sertraline HCl 100 Mg Tablet 100 Mg PO DAILY Multivitamin 1 Each Tablet 1 Each PO DAILY Levothyroxine Sodium 137 Mcg Tablet 137 Mcg PO DAILY Donepezil HCl 5 Mg Tablet 5 Mg PO HS Aspirin EC (Aspirin) 81 Mg Tablet.dr 81 Mg PO DAILY Metoprolol Succinate 25 Mg Tab.er.24h 25 Mg PO DAILY Ativan (Lorazepam) 0.5 Mg Tablet 0.25 Mg PO BID PRN TAKES OF A 0.5MG Levemir Flexpen (Insulin Detemir) 100 Unit/Ml (3 Ml) Insuln.pen 7 Unit SQ HS Novolog (Insulin Aspart) 100 Unit/Ml Susp 5 Unit SQ TID INJECT 5 UNITS WITH SLIDING SCALE ORDER Novolog (Insulin Aspart) 100 Unit/Ml Susp Unit SQ TID USE THE FOLLOWING SLIDING SCALE: 150-200=1 UNITS 201-250=2 UNITS 251-300=3 UNITS 301-350=4 UNITS 351-400=5 UNITS 401 AND ABOVE=6 UNITS IF BLOOD SUGAR IS GREATER THEN 400 RECHECK AFTER 4 HOURS IF BLOOD SUGAR IS COMING DOWN NO FURTHER SLIDING SCALE INSULIN IS NEEDED, IF BLOOD SUGAR REMAINS ELEVATED ADMINISTER PRN SLIDING SCALE Novolog Flexpen (Insulin Aspart) 100 Unit/Ml (3 Ml) Solution Units SC Q4H PRN USE THE FOLLOWING SLIDING SCALE: 150-200=1 UNITS 201-250=2 UNITS 251-300=3 UNITS 301-350=4 UNITS 351-400=5 UNITS 401 AND ABOVE=6 UNITS Gvoke Hypopen 2-Pack (Glucagon) 1 Mg/0.2 Ml Auto.injct 1 Mg IM UD PRN IF RESIDENT IS ONTUNDED OR UNCONSCIOUS Omeprazole 20 Mg Capsule.dr 20 Mg PO DAILY Lab results: Laboratory Tests Test 11/11/22 17:22 11/11/22 23:16 11/12/22 05:32 11/12/22 05:33 Range/Units White Blood Count 13.7 H 8.7 4.3-11.0 10^3/uL Red Blood Count 4.36 3.68 L 4.30-5.52 10^6/uL Hemoglobin 12.8 L 10.6 L 13.3-17.7 g/dL Hematocrit 37 L 32 L 40-54 % Mean Corpuscular Volume 85 86 80-99 fL Mean Corpuscular Hemoglobin 29 29 25-34 pg Mean Corpuscular Hemoglobin Concent 35 34 32-36 g/dL Red Cell Distribution Width 13.0 13.2 10.0-14.5 % Platelet Count 163 136 130-400 10^3/uL Mean Platelet Volume 10.9 11.0 9.0-12.2 fL Immature Granulocyte % (Auto) 0 0 % Neutrophils (%) (Auto) 89 H 85 H 42-75 % Lymphocytes (%) (Auto) 4 L 7 L 12-44 % Monocytes (%) (Auto) 5 7 0-12 % Eosinophils (%) (Auto) 1 0 0-10 % Basophils (%) (Auto) 0 1 0-10 % Neutrophils # (Auto) 12.2 H 7.4 1.8-7.8 10^3/uL Lymphocytes # (Auto) 0.6 L 0.6 L 1.0-4.0 10^3/uL Monocytes # (Auto) 0.7 0.6 0.0-1.0 10^3/uL Eosinophils # (Auto) 0.1 0.0 0.0-0.3 10^3/uL Basophils # (Auto) 0.0 0.0 0.0-0.1 10^3/uL Immature Granulocyte # (Auto) 0.0 0.0 0.0-0.1 10^3/uL Neutrophils % (Manual) 92 % Lymphocytes % (Manual) 3 % Monocytes % (Manual) 5 % Blood Morphology Comment NORMAL Sodium Level 138 138 135-145 MMOL/L Potassium Level 4.9 5.4 H 3.6-5.0 MMOL/L Chloride Level 102 106 98-107 MMOL/L Carbon Dioxide Level 24 22 21-32 MMOL/L Anion Gap 12 10 5-14 MMOL/L Blood Urea Nitrogen 30 H 34 H 7-18 MG/DL Creatinine 1.84 H 1.92 H 0.60-1.30 MG/DL Estimat Glomerular Filtration Rate 36 34 BUN/Creatinine Ratio 16 18 Glucose Level 220 H 285 H 70-105 MG/DL Calcium Level 9.4 8.4 L 8.5-10.1 MG/DL Corrected Calcium 9.2 8.5-10.1 MG/DL Total Bilirubin 1.2 H 0.1-1.0 MG/DL Aspartate Amino Transf (AST/SGOT) 17 5-34 U/L Alanine Aminotransferase (ALT/SGPT) 16 0-55 U/L Alkaline Phosphatase 119 40-136 U/L Total Protein 7.6 6.4-8.2 GM/DL Albumin 4.3 3.2-4.5 GM/DL Lipase 20 8-78 U/L Glucometer 234 H 275 H 70-110 MG/DL Test 11/12/22 11:53 Range/Units Glucometer 265 H 70-110 MG/DL My orders: Orders - SUMIT COCHRAN MD Admission Order(Inpt,Obs,Sdc) (11/11/22 22:25) Code/Resuscitation (11/11/22 22:25) Sequential Compression Device ONCE (11/11/22 22:25) Initiate Admission Nursing Pro .admission (11/11/22 22:25) Isolation Central Supply Req (11/11/22 22:25) Clear Liquid (11/12/22 Breakfast) Activity (11/11/22 22:25) Cbc With Automated Diff (11/12/22 05:00) Basic Metabolic Panel (11/12/22 05:00) Ns Iv 1000 Ml (Sodium Chloride 0.9%) (11/11/22 22:45) Pantoprazole Injection (Protonix Injecti (11/12/22 09:00) Cho 60g/M 1snack (16-2000 Ji) (11/12/22 Lunch) Attending Discharge Inpt/Inobs (11/12/22 15:23) SUMIT COCHRAN MD Nov 12, 2022 15:30
[2022-11-12 15:47] VITALS: BP 125/74
[2022-11-12 16:58] VITALS: BP 125/74
== END 2022-11-12 15:23 ==
LOC: EDUNIT# 17:11 → ER 17:13 → UNDOADMOB 22:06 → 4TH 22:06 → UNDODISOB 11-12 15:23
PROVIDERS: ADMIT Family Medicine; ATTEND Family Medicine
DX: R11.14 Bilious vomiting (principal); F03.90 Unspecified dementia, unspecified severity, without behavioral disturbance, psychotic disturbance, mood disturbance, and anxiety
CPT/HCPCS: 80048; 80053; 82947 ×2; 83690; 85007; 85025; 85027; 96376 ×2; 99283; G0378; 36415

== ENCOUNTER → 2023-06-04 | Outpatient (CLI) | payer MEDICARE, OTHER ==
[~2023-06-04] MED LIST changes: +DONE5TAB30 PO; +GLUC1AUT2 IM; +INSU100I14 SC; -INSU100I29 SC; +INSU100I30 SC; +INSU100I88 SQ; +INSU100V16 SQ; +LEVO137T2 PO; +LORA-404 PO; +MTP25TSR PO; +MULT-1136 PO; +ONDA4TAB11 SL; +PANT40TA52 PO; +SERT-414 PO
[2023-06-04 10:06] LABS: CLARITY,URINE CLOUDY; COLOR,URINE YELLOW; GLUCOSE, URINE (UA) NEGATIVE (NEGATIVE); KETONES,URINE NEGATIVE (NEGATIVE); NITRITE,URINE NEGATIVE (NEGATIVE); PH,URINE 5.5 (5-9); PROTEIN,URINE 1+ (NEGATIVE)
[2023-06-04 10:07] LABS: BILIRUBIN,URINE NEGATIVE (NEGATIVE); LEUKOCYTE ESTERASE ,URINE 3+ (NEGATIVE)
[2023-06-04 10:09] LABS: BACTERIA,URINE LARGE /HPF; SQUAMOUS EPITHELIAL CELL,UR 0-2 /HPF; WBC,URINE TNTC /HPF
== END ==
LOC: LABNPT 09:26
PROVIDERS: ATTEND Family Medicine
DX: R41.82 Altered mental status, unspecified (principal)
CPT/HCPCS: 81000; 87077; 87088; 87186

== ENCOUNTER → 2023-06-19 | Outpatient (CLI) | payer SELFPAY ==
[2023-06-19 18:49] LABS: BACTERIA,URINE TRACE /HPF; BILIRUBIN,URINE NEGATIVE (NEGATIVE); CLARITY,URINE CLEAR; COLOR,URINE YELLOW; GLUCOSE, URINE (UA) TRACE (NEGATIVE); KETONES,URINE TRACE (NEGATIVE); LEUKOCYTE ESTERASE ,URINE NEGATIVE (NEGATIVE); NITRITE,URINE NEGATIVE (NEGATIVE); PROTEIN,URINE NEGATIVE (NEGATIVE); RBC,URINE 0-2 /HPF
== END ==
LOC: MERGE 18:24 → LABNPT 18:24
PROVIDERS: ATTEND Family Medicine
DX: N39.0 Urinary tract infection, site not specified (principal)
CPT/HCPCS: 81000

== ENCOUNTER → 2023-07-09 | Outpatient (CLI) | payer MEDICARE, OTHER ==
[2023-07-09 07:21] LABS: CLARITY,URINE CLOUDY; COLOR,URINE YELLOW; GLUCOSE, URINE (UA) NEGATIVE (NEGATIVE); PH,URINE 5.5 (5-9); PROTEIN,URINE 2+ (NEGATIVE)
[2023-07-09 07:22] LABS: KETONES,URINE NEGATIVE (NEGATIVE); LEUKOCYTE ESTERASE ,URINE 1+ (NEGATIVE); NITRITE,URINE NEGATIVE (NEGATIVE); WBC,URINE 50-100 /HPF
[2023-07-09 07:23] LABS: BACTERIA,URINE LARGE /HPF
[2023-07-09 07:25] LABS: BILIRUBIN,URINE 1+ (NEGATIVE)
== END ==
LOC: LABNPT 07:04
PROVIDERS: ATTEND Family Medicine
DX: R82.90 Unspecified abnormal findings in urine (principal)
CPT/HCPCS: 81000; 87077; 87088; 87186